=== PATIENT | female | born 1960 | race Caucasian/White ===

== ENCOUNTER 2019-04-27 11:08 | Inpatient (IN) | payer MEDICARE, MEDICAID ==
[~2019-04-27] VITALS: Ht 157.5 cm; Wt 93.9 kg
[~2019-04-27 11:08] MED LIST: ALPR0.5T PO; ATORVASTATIN CA80 MG PO; BUPR300T3 PO; CEPH-264 PO; DULO60CA6 PO; FLUT1DIS3 IH; HYDR-3135 PO; LEVALBUTER1.25 MG/0. NEB; PREG200C PO; SUVO20TA PO
--- NOTE | 2019-04-27 11:31 | EKG ---
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
[2019-04-27 11:40] LABS: BILIRUBIN,URINE NEGATIVE (NEG); CLARITY,URINE CLEAR; COLOR,URINE YELLOW; NITRITE,URINE NEGATIVE (NEG); PROTEIN,URINE NEGATIVE (NEG-TRACE)
[2019-04-27 11:47] LABS: BARBITURATES NEG (NEG); BENZODIAZEPINES POS (NEG); CANNABINOIDS NEG (NEG); COCAINE NEG (NEG); METHADONE NEG (NEG); OPIATES POS (NEG); PHENCYCLIDINE NEG (NEG)
[2019-04-27 11:48] LABS: AMPHETAMINE/METHAMPHETAMINE NEG (NEG)
[2019-04-27 11:49] LABS: BACTERIA,URINE 0 /HPF (0-FEW); RBC,URINE 0 /HPF (0-2); WBC,URINE 0 /HPF (0-4)
[2019-04-27] MEDS: IV NORMAL SALINE 1000ML BAG 1,000 ML IV SCH ×2 (11:59→14:37)
[2019-04-27 12:43] LABS: BASO # 0.1 x10^3/uL (0.0-0.2); BASO % 1 % (0-3); EOS # 0.1 x10^3/uL (0.0-0.7); EOS % 1 % (0-3); HEMATOCRIT 33.7 % (36.0-47.0); LYMPH # 0.7 x10^3/uL (1.0-4.8); LYMPH % 10 % (24-48); MEAN CORPUSCULAR HEMOGLOBIN 25 pg (25-35); MEAN CORPUSCULAR HGB CONC 33 g/dL (31-37); MEAN CORPUSCULAR VOLUME 77 fL (79-100); MONO # 0.6 x10^3/uL (0.0-1.1); MONO % 8 % (0-9); NEUT # 5.7 x10^3/uL (1.8-7.7); NEUT % 80 % (31-73); PLATELET COUNT 271 x10^3/uL (140-400); RED BLOOD COUNT 4.37 x10^6/uL (3.50-5.40); RED CELL DISTRIBUTION WIDTH 17.1 % (11.5-14.5); WHITE BLOOD COUNT 7.1 x10^3/uL (4.0-11.0)
--- NOTE | 2019-04-27 12:43 | RAD ---
PORTABLE CHEST 1V History: Altered mental status Comparison: December 08, 2017 Findings: Right suprahilar opacity, unchanged. No new consolidation. No pleural effusion. Sclerosis or erosive changes of the right humeral head. Impression: 1. Right suprahilar opacity, unchanged. No new consolidation. 2. Sclerosis and erosive changes of the right humeral head, may represent avascular necrosis. Electronically signed by: Bo Hwang DO (04/27/2019 12:40 PM) [facility]
[2019-04-27 12:52] LABS: PROTHROMBIN TIME PATIENT 12.6 SEC (11.7-14.0)
--- NOTE | 2019-04-27 12:57 | RAD ---
CT HEAD WO CONTRAST History: Altered mental status Comparison: December 09, 2017 Technique: Noncontrast CT imaging was performed of the head. Exposure: One or more of the following individualized dose reduction techniques were utilized for this examination: 1. Automated exposure control 2. Adjustment of the mA and/or kV according to patient size 3. Use of iterative reconstruction technique. Findings: There is some motion degradation. No acute intracranial hemorrhage is identified. There is no intra-axial mass effect, midline shift, or extra-axial fluid collection. Rico-white differentiation of the major vascular territories is maintained. There is mild supratentorial involutional change. There is patchy density of the bilateral mastoid air cells although present previously. Paranasal sinuses are overall aerated. There is atherosclerotic calcification of the bilateral carotid siphons. Impression: 1. No acute intracranial abnormality is identified. If there is suspicion for evolving or acute ischemia, follow-up CT or MRI could be beneficial. Electronically signed by: Dread Chan MD (04/27/2019 12:54 PM) [facility]
--- NOTE | 2019-04-27 13:05 | PHYS DOC ---
Past Medical History Past Medical History: Anemia, Anxiety, COPD, Depression, Diabetes-Type II, High Cholesterol, Hypertension, Other Additional Past Medical Histor: Diabetic Neuropathy Past Surgical History: Appendectomy, Cholecystectomy, Hysterectomy, Other Additional Past Surgical Histo: Right Kidney Removed Alcohol Use: None Drug Use: Cocaine Adult General Chief Complaint Chief Complaint: ALTERED MENTAL STATUS HPI HPI Patient is a 59 year old female with history of hypertension, diabetes high cholesterol, depression, anxiety who presents to the ED via EMS, EMS report patient's roommate found her sitting on the floor and appeared altered patient's roommate is not present right now in the ED patient is alert and oriented 2. Denies any chest pain. Denies any shortness of breath. She is a poor historian. Review of Systems Review of Systems Constitutional: Denies fever or chills [] Eyes: Denies change in visual acuity, redness, or eye pain [] HENT: Denies nasal congestion or sore throat [] Respiratory: Denies cough or shortness of breath [] Cardiovascular: No additional information not addressed in HPI [] GI: Denies abdominal pain, nausea, vomiting, bloody stools or diarrhea [] : Denies dysuria or hematuria [] Musculoskeletal: Denies back pain or joint pain [] Integument: Denies rash or skin lesions [] Neurologic: Reports altered mental status. Denies headache, focal weakness or sensory changes [] All other systems were reviewed and found to be within normal limits, except as documented in this note. Current Medications Current Medications Current Medications Medications (Trade) Dose Ordered Sig/Angel Start Time Stop Time Status Last Admin Dose Admin Sodium Chloride 1,000 ml @ 1,500 mls/hr Q40M 04/27/19 11:21 04/27/19 12:20 DC 04/27/19 14:37 1,500 MLS/HR Allergies Allergies Allergies Coded Allergies Type Severity Reaction Last Updated Verified sulfamethoxazole Allergy Intermediate Hives 12/25/17 Yes trimethoprim Allergy Intermediate Hives 12/25/17 Yes Physical Exam Physical Exam Constitutional: Well developed, well nourished, no acute distress, non-toxic appearance. [] HENT: Normocephalic, atraumatic, bilateral external ears normal, oropharynx moist, no oral exudates, nose normal. [] Eyes: PERRLA, EOMI, conjunctiva normal, no discharge. [] Neck: Normal range of motion, no tenderness, supple, no stridor. [] Cardiovascular:Heart rate regular rhythm, no murmur [] Lungs & Thorax: Coarse lung sounds. Abdomen: Bowel sounds normal, soft, no tenderness, no masses, no pulsatile masses. [] Skin: Warm, dry, no erythema, no rash. [] Back: No tenderness, no CVA tenderness. [] Extremities: No tenderness, no cyanosis, no clubbing, ROM intact, no edema. Missing fourth and fifth toes on the right foot. Scabbing noted distal end of the left fourth, third +2 bilateral pedal pulses. Toes. Neurologic: Alert and oriented X 2, normal motor function, normal sensory function, no focal deficits noted. [] Psychologic: Affect normal, judgement normal, mood normal. [] Current Patient Data Vital Signs Vital Signs Date Time Temp Pulse Resp B/P (MAP) Pulse Ox O2 Delivery O2 Flow Rate FiO2 04/27/19 13:11 96 94 04/27/19 11:08 98.7 21 90/70 (77) Room Air 98.7 Lab Values Laboratory Tests Test 04/27/19 11:25 04/27/19 12:15 Urine Collection Type U cath Urine Color Yellow Urine Clarity Clear Urine pH 5.0 Urine Specific [place] 1.020 Urine Protein Negative mg/dL (NEG-TRACE) Urine Glucose (UA) Negative mg/dL (NEG) Urine Ketones (Stick) Trace mg/dL (NEG) Urine Blood Negative (NEG) Urine Nitrite Negative (NEG) Urine Bilirubin Negative (NEG) Urine Urobilinogen Dipstick 1.0 mg/dL (0.2 mg/dL) Urine Leukocyte Esterase Negative (NEG) Urine RBC 0 /HPF (0-2) Urine WBC 0 /HPF (0-4) Urine Squamous Epithelial Cells None /LPF Urine Bacteria 0 /HPF (0-FEW) Urine Mucus Slight /LPF Urine Opiates Screen Pos (NEG) Urine Methadone Screen Neg (NEG) Urine Barbiturates Neg (NEG) Urine Phencyclidine Screen Neg (NEG) Urine Amphetamine/Methamphetamine Neg (NEG) Urine Benzodiazepines Screen Pos (NEG) Urine Cocaine Screen Neg (NEG) Urine Cannabinoids Screen Neg (NEG) Urine Ethyl Alcohol Neg (NEG) White Blood Count 7.1 x10^3/uL (4.0-11.0) Red Blood Count 4.37 x10^6/uL (3.50-5.40) Hemoglobin 11.0 g/dL (12.0-15.5) L Hematocrit 33.7 % (36.0-47.0) L Mean Corpuscular Volume 77 fL (79-100) L Mean Corpuscular Hemoglobin 25 pg (25-35) Mean Corpuscular Hemoglobin Concent 33 g/dL (31-37) Red Cell Distribution Width 17.1 % (11.5-14.5) H Platelet Count 271 x10^3/uL (140-400) Neutrophils (%) (Auto) 80 % (31-73) H Lymphocytes (%) (Auto) 10 % (24-48) L Monocytes (%) (Auto) 8 % (0-9) Eosinophils (%) (Auto) 1 % (0-3) Basophils (%) (Auto) 1 % (0-3) Neutrophils # (Auto) 5.7 x10^3/uL (1.8-7.7) Lymphocytes # (Auto) 0.7 x10^3/uL (1.0-4.8) L Monocytes # (Auto) 0.6 x10^3/uL (0.0-1.1) Eosinophils # (Auto) 0.1 x10^3/uL (0.0-0.7) Basophils # (Auto) 0.1 x10^3/uL (0.0-0.2) Prothrombin Time 12.6 SEC (11.7-14.0) Prothrombin Time INR 1.0 (0.8-1.1) Activated Partial Thromboplast Time 30 SEC (24-38) Sodium Level 140 mmol/L (136-145) Potassium Level 4.9 mmol/L (3.5-5.1) Chloride Level 103 mmol/L (98-107) Carbon Dioxide Level 27 mmol/L (21-32) Anion Gap 10 (6-14) Blood Urea Nitrogen 50 mg/dL (7-20) H Creatinine 1.5 mg/dL (0.6-1.0) H Estimated GFR (Cockcroft-Gault) 35.4 BUN/Creatinine Ratio 33 (6-20) H Glucose Level 103 mg/dL (70-99) H Lactic Acid Level 0.7 mmol/L (0.4-2.0) Calcium Level 9.1 mg/dL (8.5-10.1) Magnesium Level 2.0 mg/dL (1.8-2.4) Total Bilirubin 0.4 mg/dL (0.2-1.0) Aspartate Amino Transferase (AST) 17 U/L (15-37) Alanine Aminotransferase (ALT) 17 U/L (14-59) Alkaline Phosphatase 86 U/L (46-116) Ammonia < 10 mcmol/L (11-34) L Creatine Kinase 197 U/L (26-192) H Creatine Kinase MB (Mass) 3.5 ng/mL (0.0-3.6) Creatine Kinase MB Relative Index 1.8 % (0-4) Troponin I Quantitative < 0.017 ng/mL (0.000-0.055) AN-Tbf-M-Type Natriuretic Peptide 182 pg/mL (0-124) H Total Protein 7.1 g/dL (6.4-8.2) Albumin 3.7 g/dL (3.4-5.0) Albumin/Globulin Ratio 1.1 (1.0-1.7) Amylase Level 23 U/L (25-115) L Lipase 92 U/L (73-393) Procalcitonin < 0.10 ng/mL (0.00-0.10) Thyroid Stimulating Hormone (TSH) 1.597 uIU/mL (0.358-3.74) Salicylates Level < 2.8 mg/dL (2.8-20.0) L Salicylate Last Dose Date Unknown Salicylate Last Dose Time Unknown Acetaminophen Level < 2 mcg/ml (10-30) L Acetaminophen Last Dose Date Unknown Acetaminophen Last Dose Time Unknown Ethyl Alcohol Level < 10 mg/dL (0-10) Laboratory Tests 04/27/19 12:15 Laboratory Tests 04/27/19 12:15 EKG EKG [] Radiology/Procedures Radiology/Procedures []PROCEDURE: PORTABLE CHEST 1V PORTABLE CHEST 1V History: Altered mental status Comparison: December 08, 2017 Findings: Right suprahilar opacity, unchanged. No new consolidation. No pleural effusion. Sclerosis or erosive changes of the right humeral head. Impression: 1. Right suprahilar opacity, unchanged. No new consolidation. 2. Sclerosis and erosive changes of the right humeral head, may represent avascular necrosis. Electronically signed by: Bo Hwang DO (04/27/2019 12:40 PM) [facility] DICTATED and SIGNED BY: BO HWANG DO DATE: 04/27/19 1240 PROCEDURE: CT HEAD WO CONTRAST CT HEAD WO CONTRAST History: Altered mental status Comparison: December 09, 2017 Technique: Noncontrast CT imaging was performed of the head. Exposure: One or more of the following individualized dose reduction techniques were utilized for this examination: 1. Automated exposure control 2. Adjustment of the mA and/or kV according to patient size 3. Use of iterative reconstruction technique. Findings: There is some motion degradation. No acute intracranial hemorrhage is identified. There is no intra-axial mass effect, midline shift, or extra-axial fluid collection. Rico-white differentiation of the major vascular territories is maintained. There is mild supratentorial involutional change. There is patchy density of the bilateral mastoid air cells although present previously. Paranasal sinuses are overall aerated. There is atherosclerotic calcification of the bilateral carotid siphons. Impression: 1. No acute intracranial abnormality is identified. If there is suspicion for evolving or acute ischemia, follow-up CT or MRI could be beneficial. Electronically signed by: Robert Gibson MD (04/27/2019 12:54 PM) [facility] DICTATED and SIGNED BY: ROBERT GIBSON MD DATE: 04/27/19 1254 Course & Med Decision Making Course & Med Decision Making Pertinent Labs and Imaging studies reviewed. (See chart for details) This is a 59-year-old female patient presenting to the ED today via EMS with complaints of altered mental status. Patient is a poor historian. She was apparently found sitting on the floor by the roommate and did not act normal. Patient appears altered in the ED though we do not know her baseline CT of the head is negative, chest x-ray is negative for any acute findings. Urine drug screen noted for benzodiazepines and opiates. CBC with no acute findings, CMP with creatinine of 1.5, BUN of 50-this is around her baseline UA is negative. Lactic is normal.She was given IV fluids in the ED. Spoke with Dr. Duarte who accepted patient for admission Neurology routine consult placed. Dragon Disclaimer Dragon Disclaimer This electronic medical record was generated, in whole or in part, using a voice recognition dictation system. Departure Departure Impression: Primary Impression: AMS (altered mental status) Additional Impression: CKD (chronic kidney disease) Disposition: 09 ADMITTED INPATIENT Condition: STABLE Referrals: UNKNOWN PCP NAME (PCP) NIHSS Stroke Scale NIH Stroke Scale: NIH Stroke Scale Response (Comments) Value Level of Consciousness: 0 Alert/Responsive 0 LOC Questions: 1 Answers one correctly 1 LOC Commands: 1 Performs one task 1 Best Gaze: 0 Normal 0 Visual: 0 No visual loss 0 Facial Palsy: 0 Normal, symmetrical 0 Motor - Left Arm 0 No drift 0 Motor - Right Arm 0 No drift 0 Motor - Left Leg 0 No drift 0 Motor: Right Leg 0 No drift 0 Limb Ataxia: 0 Absent 0 Sensory: 0 No loss 0 Best Language: 0 Normal 0 Dysathria: 1 Mild to moderate 1 Extinction and Inattention: 0 Normal 0 Total 3 Problem Qualifiers Primary Impression: AMS (altered mental status) Altered mental status type: unspecified Qualified Codes: R41.82 - Altered mental status, unspecified Additional Impression: CKD (chronic kidney disease) Chronic kidney disease stage: unspecified stage Qualified Codes: N18.9 - Chronic kidney disease, unspecified RAGHAV WILKINSON APRN Apr 27, 2019 13:05
[2019-04-27 13:09] LABS: CALCIUM 9.1 mg/dL (8.5-10.1); CREATININE 1.5 mg/dL (0.6-1.0); GFR 35.4; POTASSIUM 4.9 mmol/L (3.5-5.1)
[2019-04-27 13:10] LABS: ALBUMIN 3.7 g/dL (3.4-5.0); ALBUMIN/GLOBULIN RATIO 1.1 (1.0-1.7); TOTAL BILIRUBIN 0.4 mg/dL (0.2-1.0); TOTAL PROTEIN 7.1 g/dL (6.4-8.2)
[2019-04-27 13:18] LABS: ACETAMIN < 2 mcg/ml (10-30); ETHANOL < 10 mg/dL (0-10); SALIC < 2.8 mg/dL (2.8-20.0)
[2019-04-27] MEDS ORDERED: ONDANSETRON PF 4 MG/2 ML VIAL. IV PRN (14:30)
[2019-04-27] MEDS ORDERED: ACETAMINOPHEN 325 MG TABLET. PO PRN (14:30)
[2019-04-27] MEDS: IV NORMAL SALINE 1000ML BAG 1,000 ML IV ONE ×2 (14:37→21:33)
[2019-04-27 16:40] VITALS: BP 157/87
--- NOTE | 2019-04-27 17:44 | PDOC2 ---
CONSULT Date of Consult Date of Consult DATE: 04/27/19 TIME: 17:43 Past Medical History Cardiovascular: HTN Pulmonary: COPD CENTRAL NERVOUS SYSTEM: Periperal neuropathy Musculoskeletal: low back pain, Osteoarthritis, Weakness Renal/: Other Endocrine: Diabetes Past Surgical History Past Surgical History: Hysterectomy, Other Family History Family History: Hypertension Social History ALCOHOL: none Drugs: None Current Problem List Problem List Problems Medical Problems: (1) AMS (altered mental status) Status: Acute (2) CKD (chronic kidney disease) Status: Acute Current Medications Current Medications Current Medications Sodium Chloride 1,000 ml @ 1,500 mls/hr Q40M IV Last administered on 04/27/19at 14:37; Start 04/27/19 at 11:21; Stop 04/27/19 at 12:20; Status DC Ondansetron HCl (Zofran) 4 mg PRN Q8HRS PRN IV NAUSEA/VOMITING; Start 04/27/19 at 14:30; Stop 04/28/19 at 14:29 Acetaminophen (Tylenol) 650 mg PRN Q4HRS PRN PO FEVER; Start 04/27/19 at 14:30; Stop 04/28/19 at 14:29 Sodium Chloride 1,000 ml @ 75 mls/hr 1X ONCE IV ; Start 04/27/19 at 14:30; Stop 04/28/19 at 03:49 Levofloxacin/ Dextrose 100 ml @ 100 mls/hr Q24H IV ; Start 04/27/19 at 18:00 Active Scripts Active Keflex (Cephalexin) 500 Mg Capsule 1 Cap PO TID Levalbuterol Concentrate (Levalbuterol Hcl) 1.25 Mg/0.5 Ml Vial.neb 1.25 Mg NEB RTQID 30 Days [place] 10-325 Tablet (Acetaminophen/Hydrocodone Bitart) 1 Each Tablet 1 Tab PO PRN Q6HRS PRN 30 Days Reported Advair 250-50 Diskus (Fluticasone/Salmeterol) 1 Each Disk.w.dev 1 Puff IH BID Atorvastatin Calcium 80 Mg Tablet 80 Mg PO HS Lyrica (Pregabalin) 200 Mg Capsule 1 Cap PO TID Belsomra (Suvorexant) 20 Mg Tablet 20 Mg PO Xanax (Alprazolam) 0.5 Mg Tablet 1 Tab PO DAILY Cymbalta (Duloxetine Hcl) 60 Mg Capsule.dr 2 Cap PO DAILY Wellbutrin Xl (Bupropion Hcl) 300 Mg Tab.er.24h 1 Tab PO DAILY Allergies Allergies: Coded Allergies: sulfamethoxazole (Verified Allergy, Intermediate, Hives , 12/25/17) trimethoprim (Verified Allergy, Intermediate, Hives , 12/25/17) Vitals VITALS Vital Signs Date Time Temp Pulse Resp B/P (MAP) Pulse Ox O2 Delivery O2 Flow Rate FiO2 04/27/19 16:40 97.8 96 16 157/87 (110) 96 Room Air 97.8 Labs Labs Laboratory Tests Test 04/27/19 11:25 04/27/19 12:15 Urine Collection Type U cath Urine Color Yellow Urine Clarity Clear Urine pH 5.0 Urine Specific [place] 1.020 Urine Protein Negative mg/dL (NEG-TRACE) Urine Glucose (UA) Negative mg/dL (NEG) Urine Ketones (Stick) Trace mg/dL (NEG) Urine Blood Negative (NEG) Urine Nitrite Negative (NEG) Urine Bilirubin Negative (NEG) Urine Urobilinogen Dipstick 1.0 mg/dL (0.2 mg/dL) Urine Leukocyte Esterase Negative (NEG) Urine RBC 0 /HPF (0-2) Urine WBC 0 /HPF (0-4) Urine Squamous Epithelial Cells None /LPF Urine Bacteria 0 /HPF (0-FEW) Urine Mucus Slight /LPF Urine Opiates Screen Pos (NEG) Urine Methadone Screen Neg (NEG) Urine Barbiturates Neg (NEG) Urine Phencyclidine Screen Neg (NEG) Urine Amphetamine/Methamphetamine Neg (NEG) Urine Benzodiazepines Screen Pos (NEG) Urine Cocaine Screen Neg (NEG) Urine Cannabinoids Screen Neg (NEG) Urine Ethyl Alcohol Neg (NEG) White Blood Count 7.1 x10^3/uL (4.0-11.0) Red Blood Count 4.37 x10^6/uL (3.50-5.40) Hemoglobin 11.0 g/dL (12.0-15.5) Hematocrit 33.7 % (36.0-47.0) Mean Corpuscular Volume 77 fL (79-100) Mean Corpuscular Hemoglobin 25 pg (25-35) Mean Corpuscular Hemoglobin Concent 33 g/dL (31-37) Red Cell Distribution Width 17.1 % (11.5-14.5) Platelet Count 271 x10^3/uL (140-400) Neutrophils (%) (Auto) 80 % (31-73) Lymphocytes (%) (Auto) 10 % (24-48) Monocytes (%) (Auto) 8 % (0-9) Eosinophils (%) (Auto) 1 % (0-3) Basophils (%) (Auto) 1 % (0-3) Neutrophils # (Auto) 5.7 x10^3/uL (1.8-7.7) Lymphocytes # (Auto) 0.7 x10^3/uL (1.0-4.8) Monocytes # (Auto) 0.6 x10^3/uL (0.0-1.1) Eosinophils # (Auto) 0.1 x10^3/uL (0.0-0.7) Basophils # (Auto) 0.1 x10^3/uL (0.0-0.2) Prothrombin Time 12.6 SEC (11.7-14.0) Prothromb Time International Ratio 1.0 (0.8-1.1) Activated Partial Thromboplast Time 30 SEC (24-38) Sodium Level 140 mmol/L (136-145) Potassium Level 4.9 mmol/L (3.5-5.1) Chloride Level 103 mmol/L (98-107) Carbon Dioxide Level 27 mmol/L (21-32) Anion Gap 10 (6-14) Blood Urea Nitrogen 50 mg/dL (7-20) Creatinine 1.5 mg/dL (0.6-1.0) Estimated GFR (Cockcroft-Gault) 35.4 BUN/Creatinine Ratio 33 (6-20) Glucose Level 103 mg/dL (70-99) Lactic Acid Level 0.7 mmol/L (0.4-2.0) Calcium Level 9.1 mg/dL (8.5-10.1) Magnesium Level 2.0 mg/dL (1.8-2.4) Total Bilirubin 0.4 mg/dL (0.2-1.0) Aspartate Amino Transf (AST/SGOT) 17 U/L (15-37) Alanine Aminotransferase (ALT/SGPT) 17 U/L (14-59) Alkaline Phosphatase 86 U/L (46-116) Ammonia < 10 mcmol/L (11-34) Creatine Kinase 197 U/L (26-192) Creatine Kinase MB (Mass) 3.5 ng/mL (0.0-3.6) Creatine Kinase MB Relative Index 1.8 % (0-4) Troponin I Quantitative < 0.017 ng/mL (0.000-0.055) GN-Imf-D-Type Natriuretic Peptide 182 pg/mL (0-124) Total Protein 7.1 g/dL (6.4-8.2) Albumin 3.7 g/dL (3.4-5.0) Albumin/Globulin Ratio 1.1 (1.0-1.7) Amylase Level 23 U/L (25-115) Lipase 92 U/L (73-393) Procalcitonin < 0.10 ng/mL (0.00-0.10) Thyroid Stimulating Hormone (TSH) 1.597 uIU/mL (0.358-3.74) Salicylates Level < 2.8 mg/dL (2.8-20.0) Salicylate Last Dose Date Unknown Salicylate Last Dose Time Unknown Acetaminophen Level < 2 mcg/ml (10-30) Acetaminophen Last Dose Date Unknown Acetaminophen Last Dose Time Unknown Ethyl Alcohol Level < 10 mg/dL (0-10) Laboratory Tests Test 04/27/19 11:25 04/27/19 12:15 Urine Collection Type U cath Urine Color Yellow Urine Clarity Clear Urine pH 5.0 Urine Specific [place] 1.020 Urine Protein Negative mg/dL (NEG-TRACE) Urine Glucose (UA) Negative mg/dL (NEG) Urine Ketones (Stick) Trace mg/dL (NEG) Urine Blood Negative (NEG) Urine Nitrite Negative (NEG) Urine Bilirubin Negative (NEG) Urine Urobilinogen Dipstick 1.0 mg/dL (0.2 mg/dL) Urine Leukocyte Esterase Negative (NEG) Urine RBC 0 /HPF (0-2) Urine WBC 0 /HPF (0-4) Urine Squamous Epithelial Cells None /LPF Urine Bacteria 0 /HPF (0-FEW) Urine Mucus Slight /LPF Urine Opiates Screen Pos (NEG) Urine Methadone Screen Neg (NEG) Urine Barbiturates Neg (NEG) Urine Phencyclidine Screen Neg (NEG) Urine Amphetamine/Methamphetamine Neg (NEG) Urine Benzodiazepines Screen Pos (NEG) Urine Cocaine Screen Neg (NEG) Urine Cannabinoids Screen Neg (NEG) Urine Ethyl Alcohol Neg (NEG) White Blood Count 7.1 x10^3/uL (4.0-11.0) Red Blood Count 4.37 x10^6/uL (3.50-5.40) Hemoglobin 11.0 g/dL (12.0-15.5) Hematocrit 33.7 % (36.0-47.0) Mean Corpuscular Volume 77 fL (79-100) Mean Corpuscular Hemoglobin 25 pg (25-35) Mean Corpuscular Hemoglobin Concent 33 g/dL (31-37) Red Cell Distribution Width 17.1 % (11.5-14.5) Platelet Count 271 x10^3/uL (140-400) Neutrophils (%) (Auto) 80 % (31-73) Lymphocytes (%) (Auto) 10 % (24-48) Monocytes (%) (Auto) 8 % (0-9) Eosinophils (%) (Auto) 1 % (0-3) Basophils (%) (Auto) 1 % (0-3) Neutrophils # (Auto) 5.7 x10^3/uL (1.8-7.7) Lymphocytes # (Auto) 0.7 x10^3/uL (1.0-4.8) Monocytes # (Auto) 0.6 x10^3/uL (0.0-1.1) Eosinophils # (Auto) 0.1 x10^3/uL (0.0-0.7) Basophils # (Auto) 0.1 x10^3/uL (0.0-0.2) Prothrombin Time 12.6 SEC (11.7-14.0) Prothromb Time International Ratio 1.0 (0.8-1.1) Activated Partial Thromboplast Time 30 SEC (24-38) Sodium Level 140 mmol/L (136-145) Potassium Level 4.9 mmol/L (3.5-5.1) Chloride Level 103 mmol/L (98-107) Carbon Dioxide Level 27 mmol/L (21-32) Anion Gap 10 (6-14) Blood Urea Nitrogen 50 mg/dL (7-20) Creatinine 1.5 mg/dL (0.6-1.0) Estimated GFR (Cockcroft-Gault) 35.4 BUN/Creatinine Ratio 33 (6-20) Glucose Level 103 mg/dL (70-99) Lactic Acid Level 0.7 mmol/L (0.4-2.0) Calcium Level 9.1 mg/dL (8.5-10.1) Magnesium Level 2.0 mg/dL (1.8-2.4) Total Bilirubin 0.4 mg/dL (0.2-1.0) Aspartate Amino Transf (AST/SGOT) 17 U/L (15-37) Alanine Aminotransferase (ALT/SGPT) 17 U/L (14-59) Alkaline Phosphatase 86 U/L (46-116) Ammonia < 10 mcmol/L (11-34) Creatine Kinase 197 U/L (26-192) Creatine Kinase MB (Mass) 3.5 ng/mL (0.0-3.6) Creatine Kinase MB Relative Index 1.8 % (0-4) Troponin I Quantitative < 0.017 ng/mL (0.000-0.055) MJ-Pty-K-Type Natriuretic Peptide 182 pg/mL (0-124) Total Protein 7.1 g/dL (6.4-8.2) Albumin 3.7 g/dL (3.4-5.0) Albumin/Globulin Ratio 1.1 (1.0-1.7) Amylase Level 23 U/L (25-115) Lipase 92 U/L (73-393) Procalcitonin < 0.10 ng/mL (0.00-0.10) Thyroid Stimulating Hormone (TSH) 1.597 uIU/mL (0.358-3.74) Salicylates Level < 2.8 mg/dL (2.8-20.0) Salicylate Last Dose Date Unknown Salicylate Last Dose Time Unknown Acetaminophen Level < 2 mcg/ml (10-30) Acetaminophen Last Dose Date Unknown Acetaminophen Last Dose Time Unknown Ethyl Alcohol Level < 10 mg/dL (0-10) Images Images Chest x-ray reviewed 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 PHYSICIAN: RAGHAV WILKINSON APRN REASON: AMS PROCEDURE: PORTABLE CHEST 1V PORTABLE CHEST 1V History: Altered mental status Comparison: December 08, 2017 Findings: Right suprahilar opacity, unchanged. No new consolidation. No pleural effusion. Sclerosis or erosive changes of the right humeral head. Impression: 1. Right suprahilar opacity, unchanged. No new consolidation. 2. Sclerosis and erosive changes of the right humeral head, may represent avascular necrosis. Electronically signed by: Bo wHang DO (04/27/2019 12:40 PM) [facility] DICTATED and SIGNED BY: BO HWANG DO DATE: 04/27/19 1240 Assessment/Plan Assessment/Plan I recommend outpatient follow-up in orthopedic clinic with x-rays for further evaluation. TERRENCE GUTIERREZ MD Apr 27, 2019 17:44
--- NOTE | 2019-04-27 18:01 | HP ---
ADMIT DATE: CHIEF COMPLAINT: Mental status change. HISTORY OF PRESENT ILLNESS: The patient is a pleasant elderly female who presented to the ER with mental status change. She came in by ambulance. Her friend called the ambulance. While in the ER, we noticed that she has some leukocyte esterase in her urine. Her CT of the head was surprisingly negative. Chest x-ray showed right suprahilar opacity and sclerosis and erosive changes of the right humeral head. She also is anemic with hemoglobin of 11. I discussed the case with ER physician. We are going to admit the patient. I am going to give her some IV antibiotics and fluids and consult Pulmonary regarding the abnormal chest x-ray and Orthopedics regarding the abnormalities suspicious for avascular necrosis. PAST MEDICAL HISTORY: COPD, anxiety, anemia, depression, diabetes, hyperlipidemia, neuropathy, appendectomy, cholecystectomy, hysterectomy and right kidney resection. ALLERGIES: SULFA AND TRIMETHOPRIM. FAMILY HISTORY: Diabetes. SOCIAL HISTORY: She does not drink, smoke or take drugs. I think she quit smoking. Lives alone. MEDICATIONS: Reviewed, please refer to the MRAD. REVIEW OF SYSTEMS: Unable to obtain. The patient is too confused. PHYSICAL EXAMINATION: VITALS: Within normal limits and are stable. GENERAL: She is somewhat disheveled, but pleasant. HEENT: Head is normocephalic, atraumatic, pupils were equally round and reactive to light and accommodation. NECK: Supple, no JVD, no thyromegaly was noted. LUNGS: Diminished. HEART: RRR, S1, S2 present. Peripheral pulses intact, no obvious murmurs were noted. ABDOMEN: Soft and obese. EXTREMITIES: Trace edema. NEUROLOGIC: Normal speech, normal tone. A & O x3, moves all extremities, no obvious focal deficits. PSYCHIATRIC: Normal affect, normal mood. Stable. SKIN: Thin and frail. VASCULAR: Good capillary refill, neurovascular bundle appears to be intact. LABORATORY DATA: Troponin is 0. Sodium is 140, creatinine is 1.5 and BUN is 50. Urinalysis shows leukocyte esterase. Drug screen positive for opiates. INR is 1.0. ASSESSMENT AND PLAN: Mental status change with acute on chronic renal failure, azotemia. Abnormal chest x-ray showing right suprahilar opacity, sclerosis, erosive changes on the right humeral head suspicious for avascular necrosis and anemia. She has been admitted. We will consult Pulmonary and Orthopedics. Empiric IV antibiotics, IV fluids, home meds, PT/OT and DVT prophylaxis. Full code. ANN MARIE HERRON DO DR: MARCELLO/samanta JOB#: [id number] / [id number]
[2019-04-27 19:00] VITALS: BP 128/76
[2019-04-27 23:00] VITALS: BP 125/66
[2019-04-28 03:00] VITALS: BP 144/73
[2019-04-28 05:38] LABS: BASO % 1 % (0-3); EOS # 0.1 x10^3/uL (0.0-0.7); EOS % 1 % (0-3); HEMATOCRIT 32.9 % (36.0-47.0); HEMOGLOBIN 10.7 g/dL (12.0-15.5); LYMPH # 0.7 x10^3/uL (1.0-4.8); LYMPH % 12 % (24-48); MEAN CORPUSCULAR HEMOGLOBIN 25 pg (25-35); MEAN CORPUSCULAR HGB CONC 33 g/dL (31-37); MEAN CORPUSCULAR VOLUME 77 fL (79-100); MONO # 0.5 x10^3/uL (0.0-1.1); MONO % 9 % (0-9); NEUT # 4.2 x10^3/uL (1.8-7.7); NEUT % 77 % (31-73); PLATELET COUNT 256 x10^3/uL (140-400); RED BLOOD COUNT 4.28 x10^6/uL (3.50-5.40); RED CELL DISTRIBUTION WIDTH 17.1 % (11.5-14.5); WHITE BLOOD COUNT 5.5 x10^3/uL (4.0-11.0)
[2019-04-28 06:20] LABS: ALBUMIN 3.1 g/dL (3.4-5.0); ALBUMIN/GLOBULIN RATIO 0.9 (1.0-1.7); CALCIUM 8.9 mg/dL (8.5-10.1); CREATININE 1.2 mg/dL (0.6-1.0); GFR 45.8; POTASSIUM 3.9 mmol/L (3.5-5.1); TOTAL BILIRUBIN 0.5 mg/dL (0.2-1.0); TOTAL PROTEIN 6.4 g/dL (6.4-8.2)
[2019-04-28 07:00] VITALS: BP 124/82
[2019-04-28 07:22] LABS: % BASOS 1 % (0-3); % LYMPHS 8 % (24-48); % MONOS 10 % (0-10); % SEGS 81 % (35-66)
[2019-04-28 07:23] LABS: PLT ESTIMATE ADEQUATE (ADEQUATE)
--- NOTE | 2019-04-28 09:55 | PDOC2 ---
CONSULT Date of Consult Date of Consult DATE: 04/28/19 TIME: 09:47 Reason for Consult Reason for Consult: CRI Identification/Chief Complaint Chief Complaint No complaints" my room mate thought i was confused" History of Present Illness Reason for Visit: Patient is a 59 year old C female with history of hypertension, diabetes, depression, anxiety who presents to the ED via EMS, EMS report patient's roommate found her sitting on the floor and appeared altered .In the ED patient is alert and oriented 2. Denies any chest pain. Denies any shortness of breath. She is a poor historian. Currently deniesany complaints. Denies any urinary complaints, No symptoms of UTI Denies NSAID use Has Nephrectomy last year per pt- thinks it was Lt Kidney . Doesnt see a Rehabilitation Liaison, follows with PCP Past Medical History Cardiovascular: HTN Pulmonary: COPD CENTRAL NERVOUS SYSTEM: Periperal neuropathy Musculoskeletal: low back pain, Osteoarthritis, Weakness Renal/: Other Endocrine: Diabetes Past Surgical History Past Surgical History: Hysterectomy, Other Family History Family History Diabetes. Family History: Hypertension Social History Social History She does not drink, smoke or take drugs. I think she quit smoking. Lives alone. ALCOHOL: none Drugs: None Current Problem List Problem List Problems Medical Problems: (1) AMS (altered mental status) Status: Acute (2) CKD (chronic kidney disease) Status: Acute Current Medications Current Medications Current Medications Sodium Chloride 1,000 ml @ 1,500 mls/hr Q40M IV Last administered on 04/27/19at 14:37; Start 04/27/19 at 11:21; Stop 04/27/19 at 12:20; Status DC Ondansetron HCl (Zofran) 4 mg PRN Q8HRS PRN IV NAUSEA/VOMITING; Start 04/27/19 at 14:30; Stop 04/28/19 at 14:29 Acetaminophen (Tylenol) 650 mg PRN Q4HRS PRN PO FEVER; Start 04/27/19 at 14:30; Stop 04/28/19 at 14:29 Sodium Chloride 1,000 ml @ 75 mls/hr 1X ONCE IV Last administered on 04/27/19at 21:33; Start 04/27/19 at 14:30; Stop 04/28/19 at 03:49; Status DC Levofloxacin/ Dextrose 100 ml @ 100 mls/hr Q24H IV Last administered on 04/27/19at 18:20; Start 04/27/19 at 18:00 Active Scripts Active Levalbuterol Concentrate (Levalbuterol Hcl) 1.25 Mg/0.5 Ml Vial.neb 1.25 Mg NEB RTQID 30 Days [place] 10-325 Tablet (Acetaminophen/Hydrocodone Bitart) 1 Each Tablet 1 Tab PO PRN Q6HRS PRN 30 Days Reported Advair 250-50 Diskus (Fluticasone/Salmeterol) 1 Each Disk.w.dev 1 Puff IH BID Atorvastatin Calcium 80 Mg Tablet 80 Mg PO HS Lyrica (Pregabalin) 200 Mg Capsule 1 Cap PO TID Belsomra (Suvorexant) 20 Mg Tablet 20 Mg PO HS Xanax (Alprazolam) 0.5 Mg Tablet 1 Tab PO DAILY Cymbalta (Duloxetine Hcl) 60 Mg Capsule.dr 2 Cap PO DAILY Wellbutrin Xl (Bupropion Hcl) 300 Mg Tab.er.24h 1 Tab PO DAILY Allergies Allergies: Coded Allergies: sulfamethoxazole (Verified Allergy, Intermediate, Hives , 12/25/17) trimethoprim (Verified Allergy, Intermediate, Hives , 12/25/17) ROS Review of System Per HPI Physical Exam Physical Exam GENERAL: NAD HEENT: OM moist NECK: Supple, LUNGS: Diminished at bases, CTA HEART: RRR, S1, S2 present. ABDOMEN: Soft and obese. EXTREMITIES: Trace edema. NEUROLOGIC:Grossly Normal PSYCHIATRIC: Normal affect, normal mood. Stable. SKIN: No rash No holm , No CVA or SP tenderness Vital Signs Vital Signs Date Time Temp Pulse Resp B/P (MAP) Pulse Ox O2 Delivery O2 Flow Rate FiO2 04/28/19 07:00 97.8 88 18 124/82 (96) 95 Room Air 97.8 Assessment & Plan CKD stage 3 - - Stable renal function, baseline at [facility] in 2018 has been 1.7, UA unremarkable E-Lytes and acid base stable Supportive care, avoid nephrotoxins, Monitor Altered MS- per primary Hx of Nephrectomy - per Pt 2018 No imaging in [facility] records Diabetes per primary Anemia- CARLY per protocol for Hgb <10 Labs Labs Laboratory Tests Test 04/27/19 11:25 04/27/19 12:15 04/28/19 05:04 Urine Collection Type U cath Urine Color Yellow Urine Clarity Clear Urine pH 5.0 Urine Specific [place] 1.020 Urine Protein Negative mg/dL (NEG-TRACE) Urine Glucose (UA) Negative mg/dL (NEG) Urine Ketones (Stick) Trace mg/dL (NEG) Urine Blood Negative (NEG) Urine Nitrite Negative (NEG) Urine Bilirubin Negative (NEG) Urine Urobilinogen Dipstick 1.0 mg/dL (0.2 mg/dL) Urine Leukocyte Esterase Negative (NEG) Urine RBC 0 /HPF (0-2) Urine WBC 0 /HPF (0-4) Urine Squamous Epithelial Cells None /LPF Urine Bacteria 0 /HPF (0-FEW) Urine Mucus Slight /LPF Urine Opiates Screen Pos (NEG) Urine Methadone Screen Neg (NEG) Urine Barbiturates Neg (NEG) Urine Phencyclidine Screen Neg (NEG) Urine Amphetamine/Methamphetamine Neg (NEG) Urine Benzodiazepines Screen Pos (NEG) Urine Cocaine Screen Neg (NEG) Urine Cannabinoids Screen Neg (NEG) Urine Ethyl Alcohol Neg (NEG) White Blood Count 7.1 x10^3/uL (4.0-11.0) 5.5 x10^3/uL (4.0-11.0) Red Blood Count 4.37 x10^6/uL (3.50-5.40) 4.28 x10^6/uL (3.50-5.40) Hemoglobin 11.0 g/dL (12.0-15.5) 10.7 g/dL (12.0-15.5) Hematocrit 33.7 % (36.0-47.0) 32.9 % (36.0-47.0) Mean Corpuscular Volume 77 fL (79-100) 77 fL (79-100) Mean Corpuscular Hemoglobin 25 pg (25-35) 25 pg (25-35) Mean Corpuscular Hemoglobin Concent 33 g/dL (31-37) 33 g/dL (31-37) Red Cell Distribution Width 17.1 % (11.5-14.5) 17.1 % (11.5-14.5) Platelet Count 271 x10^3/uL (140-400) 256 x10^3/uL (140-400) Neutrophils (%) (Auto) 80 % (31-73) 77 % (31-73) Lymphocytes (%) (Auto) 10 % (24-48) 12 % (24-48) Monocytes (%) (Auto) 8 % (0-9) 9 % (0-9) Eosinophils (%) (Auto) 1 % (0-3) 1 % (0-3) Basophils (%) (Auto) 1 % (0-3) 1 % (0-3) Neutrophils # (Auto) 5.7 x10^3/uL (1.8-7.7) 4.2 x10^3/uL (1.8-7.7) Lymphocytes # (Auto) 0.7 x10^3/uL (1.0-4.8) 0.7 x10^3/uL (1.0-4.8) Monocytes # (Auto) 0.6 x10^3/uL (0.0-1.1) 0.5 x10^3/uL (0.0-1.1) Eosinophils # (Auto) 0.1 x10^3/uL (0.0-0.7) 0.1 x10^3/uL (0.0-0.7) Basophils # (Auto) 0.1 x10^3/uL (0.0-0.2) 0.0 x10^3/uL (0.0-0.2) Prothrombin Time 12.6 SEC (11.7-14.0) Prothromb Time International Ratio 1.0 (0.8-1.1) Activated Partial Thromboplast Time 30 SEC (24-38) Sodium Level 140 mmol/L (136-145) 144 mmol/L (136-145) Potassium Level 4.9 mmol/L (3.5-5.1) 3.9 mmol/L (3.5-5.1) Chloride Level 103 mmol/L (98-107) 108 mmol/L (98-107) Carbon Dioxide Level 27 mmol/L (21-32) 25 mmol/L (21-32) Anion Gap 10 (6-14) 11 (6-14) Blood Urea Nitrogen 50 mg/dL (7-20) 28 mg/dL (7-20) Creatinine 1.5 mg/dL (0.6-1.0) 1.2 mg/dL (0.6-1.0) Estimated GFR (Cockcroft-Gault) 35.4 45.8 BUN/Creatinine Ratio 33 (6-20) 23 (6-20) Glucose Level 103 mg/dL (70-99) 77 mg/dL (70-99) Lactic Acid Level 0.7 mmol/L (0.4-2.0) Calcium Level 9.1 mg/dL (8.5-10.1) 8.9 mg/dL (8.5-10.1) Magnesium Level 2.0 mg/dL (1.8-2.4) Total Bilirubin 0.4 mg/dL (0.2-1.0) 0.5 mg/dL (0.2-1.0) Aspartate Amino Transf (AST/SGOT) 17 U/L (15-37) 13 U/L (15-37) Alanine Aminotransferase (ALT/SGPT) 17 U/L (14-59) 16 U/L (14-59) Alkaline Phosphatase 86 U/L (46-116) 69 U/L (46-116) Ammonia < 10 mcmol/L (11-34) Creatine Kinase 197 U/L (26-192) Creatine Kinase MB (Mass) 3.5 ng/mL (0.0-3.6) Creatine Kinase MB Relative Index 1.8 % (0-4) Troponin I Quantitative < 0.017 ng/mL (0.000-0.055) HV-Lcl-I-Type Natriuretic Peptide 182 pg/mL (0-124) Total Protein 7.1 g/dL (6.4-8.2) 6.4 g/dL (6.4-8.2) Albumin 3.7 g/dL (3.4-5.0) 3.1 g/dL (3.4-5.0) Albumin/Globulin Ratio 1.1 (1.0-1.7) 0.9 (1.0-1.7) Amylase Level 23 U/L (25-115) Lipase 92 U/L (73-393) Procalcitonin < 0.10 ng/mL (0.00-0.10) Thyroid Stimulating Hormone (TSH) 1.597 uIU/mL (0.358-3.74) Salicylates Level < 2.8 mg/dL (2.8-20.0) Salicylate Last Dose Date Unknown Salicylate Last Dose Time Unknown Acetaminophen Level < 2 mcg/ml (10-30) Acetaminophen Last Dose Date Unknown Acetaminophen Last Dose Time Unknown Ethyl Alcohol Level < 10 mg/dL (0-10) Segmented Neutrophils % 81 % (35-66) Lymphocytes % 8 % (24-48) Monocytes % 10 % (0-10) Basophils % 1 % (0-3) Platelet Estimate Adequate (ADEQUATE) Laboratory Tests Test 04/27/19 11:25 04/27/19 12:15 04/28/19 05:04 Urine Collection Type U cath Urine Color Yellow Urine Clarity Clear Urine pH 5.0 Urine Specific [place] 1.020 Urine Protein Negative mg/dL (NEG-TRACE) Urine Glucose (UA) Negative mg/dL (NEG) Urine Ketones (Stick) Trace mg/dL (NEG) Urine Blood Negative (NEG) Urine Nitrite Negative (NEG) Urine Bilirubin Negative (NEG) Urine Urobilinogen Dipstick 1.0 mg/dL (0.2 mg/dL) Urine Leukocyte Esterase Negative (NEG) Urine RBC 0 /HPF (0-2) Urine WBC 0 /HPF (0-4) Urine Squamous Epithelial Cells None /LPF Urine Bacteria 0 /HPF (0-FEW) Urine Mucus Slight /LPF Urine Opiates Screen Pos (NEG) Urine Methadone Screen Neg (NEG) Urine Barbiturates Neg (NEG) Urine Phencyclidine Screen Neg (NEG) Urine Amphetamine/Methamphetamine Neg (NEG) Urine Benzodiazepines Screen Pos (NEG) Urine Cocaine Screen Neg (NEG) Urine Cannabinoids Screen Neg (NEG) Urine Ethyl Alcohol Neg (NEG) White Blood Count 7.1 x10^3/uL (4.0-11.0) 5.5 x10^3/uL (4.0-11.0) Red Blood Count 4.37 x10^6/uL (3.50-5.40) 4.28 x10^6/uL (3.50-5.40) Hemoglobin 11.0 g/dL (12.0-15.5) 10.7 g/dL (12.0-15.5) Hematocrit 33.7 % (36.0-47.0) 32.9 % (36.0-47.0) Mean Corpuscular Volume 77 fL (79-100) 77 fL (79-100) Mean Corpuscular Hemoglobin 25 pg (25-35) 25 pg (25-35) Mean Corpuscular Hemoglobin Concent 33 g/dL (31-37) 33 g/dL (31-37) Red Cell Distribution Width 17.1 % (11.5-14.5) 17.1 % (11.5-14.5) Platelet Count 271 x10^3/uL (140-400) 256 x10^3/uL (140-400) Neutrophils (%) (Auto) 80 % (31-73) 77 % (31-73) Lymphocytes (%) (Auto) 10 % (24-48) 12 % (24-48) Monocytes (%) (Auto) 8 % (0-9) 9 % (0-9) Eosinophils (%) (Auto) 1 % (0-3) 1 % (0-3) Basophils (%) (Auto) 1 % (0-3) 1 % (0-3) Neutrophils # (Auto) 5.7 x10^3/uL (1.8-7.7) 4.2 x10^3/uL (1.8-7.7) Lymphocytes # (Auto) 0.7 x10^3/uL (1.0-4.8) 0.7 x10^3/uL (1.0-4.8) Monocytes # (Auto) 0.6 x10^3/uL (0.0-1.1) 0.5 x10^3/uL (0.0-1.1) Eosinophils # (Auto) 0.1 x10^3/uL (0.0-0.7) 0.1 x10^3/uL (0.0-0.7) Basophils # (Auto) 0.1 x10^3/uL (0.0-0.2) 0.0 x10^3/uL (0.0-0.2) Prothrombin Time 12.6 SEC (11.7-14.0) Prothromb Time International Ratio 1.0 (0.8-1.1) Activated Partial Thromboplast Time 30 SEC (24-38) Sodium Level 140 mmol/L (136-145) 144 mmol/L (136-145) Potassium Level 4.9 mmol/L (3.5-5.1) 3.9 mmol/L (3.5-5.1) Chloride Level 103 mmol/L (98-107) 108 mmol/L (98-107) Carbon Dioxide Level 27 mmol/L (21-32) 25 mmol/L (21-32) Anion Gap 10 (6-14) 11 (6-14) Blood Urea Nitrogen 50 mg/dL (7-20) 28 mg/dL (7-20) Creatinine 1.5 mg/dL (0.6-1.0) 1.2 mg/dL (0.6-1.0) Estimated GFR (Cockcroft-Gault) 35.4 45.8 BUN/Creatinine Ratio 33 (6-20) 23 (6-20) Glucose Level 103 mg/dL (70-99) 77 mg/dL (70-99) Lactic Acid Level 0.7 mmol/L (0.4-2.0) Calcium Level 9.1 mg/dL (8.5-10.1) 8.9 mg/dL (8.5-10.1) Magnesium Level 2.0 mg/dL (1.8-2.4) Total Bilirubin 0.4 mg/dL (0.2-1.0) 0.5 mg/dL (0.2-1.0) Aspartate Amino Transf (AST/SGOT) 17 U/L (15-37) 13 U/L (15-37) Alanine Aminotransferase (ALT/SGPT) 17 U/L (14-59) 16 U/L (14-59) Alkaline Phosphatase 86 U/L (46-116) 69 U/L (46-116) Ammonia < 10 mcmol/L (11-34) Creatine Kinase 197 U/L (26-192) Creatine Kinase MB (Mass) 3.5 ng/mL (0.0-3.6) Creatine Kinase MB Relative Index 1.8 % (0-4) Troponin I Quantitative < 0.017 ng/mL (0.000-0.055) SP-Ttx-X-Type Natriuretic Peptide 182 pg/mL (0-124) Total Protein 7.1 g/dL (6.4-8.2) 6.4 g/dL (6.4-8.2) Albumin 3.7 g/dL (3.4-5.0) 3.1 g/dL (3.4-5.0) Albumin/Globulin Ratio 1.1 (1.0-1.7) 0.9 (1.0-1.7) Amylase Level 23 U/L (25-115) Lipase 92 U/L (73-393) Procalcitonin < 0.10 ng/mL (0.00-0.10) Thyroid Stimulating Hormone (TSH) 1.597 uIU/mL (0.358-3.74) Salicylates Level < 2.8 mg/dL (2.8-20.0) Salicylate Last Dose Date Unknown Salicylate Last Dose Time Unknown Acetaminophen Level < 2 mcg/ml (10-30) Acetaminophen Last Dose Date Unknown Acetaminophen Last Dose Time Unknown Ethyl Alcohol Level < 10 mg/dL (0-10) Segmented Neutrophils % 81 % (35-66) Lymphocytes % 8 % (24-48) Monocytes % 10 % (0-10) Basophils % 1 % (0-3) Platelet Estimate Adequate (ADEQUATE) Review All relevant outside records, renal labs, imaging studies, telemetry/EKG's were reviewed. Images Images CxR-- 1. Right suprahilar opacity, unchanged. No new consolidation. 2. Sclerosis and erosive changes of the right humeral head, may represent avascular necrosis. BARBARA FIERRO MD Apr 28, 2019 09:55
[2019-04-28 11:00] VITALS: BP 153/85
[2019-04-28] MEDS ORDERED: DEXTROSE 50% 25 GM / 50ML DISP.SYRIN. IV PRN (11:15)
--- NOTE | 2019-04-28 11:50 | PDOC2 ---
NEUROLOGY CONSULT Date of Admission Date of Admission DATE: 04/28/19 TIME: 11:44 Reason for Consult Reason for Consult: Altered mental status Referring Physician Referring Physician: Dr. Duarte Source Source: Chart review, Patient History of Present Illness History of Present Illness The patient is a 59-year-old right-handed female whose roommate called ambulance because the patient was acting strange last night. Patient feels fine now. She was found or have possible urinary tract infection. 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 She denies headache, diplopia, dysphagia, dysarthria, numbness, focal weakness, history of stroke, seizure, or head injury. She has a listed diagnosis of neuropathy. I saw her during her November 2017 hospital stay for weakness and tremor. MRI of the brain, thoracic, and ivy mbar spines was positive for some degenerative changes. Electroencephalogram was negative.. Past Medical History Cardiovascular: Hyperlipidemia Pulmonary: COPD CENTRAL NERVOUS SYSTEM: Periperal neuropathy Heme/Onc: Anemia NOS Psych: Anxiety, Depression Endocrine: Diabetes Past Surgical History Past Surgical History: Appendectomy, Cholecystectomy, Hysterectomy, Other (Right kidney resection) Family History Family History: DM Social History Social History Single, no alcohol or tobacco Current Medications Current Medications Current Medications Sodium Chloride 1,000 ml @ 1,500 mls/hr Q40M IV Last administered on 04/27/19at 14:37; Start 04/27/19 at 11:21; Stop 04/27/19 at 12:20; Status DC Ondansetron HCl (Zofran) 4 mg PRN Q8HRS PRN IV NAUSEA/VOMITING; Start 04/27/19 at 14:30; Stop 04/28/19 at 14:29 Acetaminophen (Tylenol) 650 mg PRN Q4HRS PRN PO FEVER; Start 04/27/19 at 14:30; Stop 04/28/19 at 14:29 Sodium Chloride 1,000 ml @ 75 mls/hr 1X ONCE IV Last administered on 04/27/19at 21:33; Start 04/27/19 at 14:30; Stop 04/28/19 at 03:49; Status DC Levofloxacin/ Dextrose 100 ml @ 100 mls/hr Q24H IV Last administered on 04/27/19at 18:20; Start 04/27/19 at 18:00 Sodium Chloride 1,000 ml @ 100 mls/hr Q10H IV ; Start 04/28/19 at 11:15 Insulin Human Lispro (HumaLOG) 0-7 UNITS TIDWMEALS SQ ; Start 04/28/19 at 12:00 Dextrose (Dextrose 50%-Water Syringe) 12.5 gm PRN Q15MIN PRN IV SEE COMMENTS; Start 04/28/19 at 11:15 Oxycodone/ Acetaminophen (Percocet 5/325) 1 tab PRN Q4HRS PRN PO PAIN; Start 04/28/19 at 11:30 Active Scripts Active Levalbuterol Concentrate (Levalbuterol Hcl) 1.25 Mg/0.5 Ml Vial.neb 1.25 Mg NEB RTQID 30 Days [place] 10-325 Tablet (Acetaminophen/Hydrocodone Bitart) 1 Each Tablet 1 Tab PO PRN Q6HRS PRN 30 Days Reported Advair 250-50 Diskus (Fluticasone/Salmeterol) 1 Each Disk.w.dev 1 Puff IH BID Atorvastatin Calcium 80 Mg Tablet 80 Mg PO HS Lyrica (Pregabalin) 200 Mg Capsule 1 Cap PO TID Belsomra (Suvorexant) 20 Mg Tablet 20 Mg PO HS Xanax (Alprazolam) 0.5 Mg Tablet 1 Tab PO DAILY Cymbalta (Duloxetine Hcl) 60 Mg Capsule.dr 2 Cap PO DAILY Wellbutrin Xl (Bupropion Hcl) 300 Mg Tab.er.24h 1 Tab PO DAILY Allergies Allergies: Coded Allergies: sulfamethoxazole (Verified Allergy, Intermediate, Hives , 12/25/17) trimethoprim (Verified Allergy, Intermediate, Hives , 12/25/17) ROS Review of System Negative for fever, chills, weight loss, shortness of breath, chest pain, indigestion, hematochezia, melena, and dysuria. Full 14-point review of systems is negative. Physical Exam Physical Examination General: Well-developed, well-nourished white female in no acute distress HEENT: Normocephalic andatraumatic. Temporal arteriespulsatile and nontender. Neck: Supple without bruit, no meningismus Musculoskeletal: Stability:see neurologic. Gait exam:see neurologic. Tone:see neurologic.Strength:see neurologic. Neurological: Mental Status:intact, orientation, memory, attention span/concentration, language, fund of knowledge normal. Cranial Nerves:Pupils equal and reactive to light, extraocular movements areintact, visual huynh are full to confrontation . Facial sensation is normal. There is no facial asymmetry. Vestibulo-ocular reflex is intact. Palate elevates and tongue protrudes in midline. All other cranial related problems are negative except as mentioned before.Reflexes:1+ and symmetric with flexor plantar responses. Motor:5/5 strength with normal tone and bulk. Coordination:Finger-nose finger and [id number]-uk-xbfn testing are normal. Rapid alternating movements and fine finger movements are intact. Gait:Normal, including tandem. Sensory: stocking loss Vitals VITALS Vital Signs Date Time Temp Pulse Resp B/P (MAP) Pulse Ox O2 Delivery O2 Flow Rate FiO2 04/28/19 07:00 97.8 88 18 124/82 (96) 95 Room Air 97.8 Labs Labs Laboratory Tests Test 04/27/19 11:25 04/27/19 12:15 04/28/19 05:04 Urine Collection Type U cath Urine Color Yellow Urine Clarity Clear Urine pH 5.0 Urine Specific [place] 1.020 Urine Protein Negative mg/dL (NEG-TRACE) Urine Glucose (UA) Negative mg/dL (NEG) Urine Ketones (Stick) Trace mg/dL (NEG) Urine Blood Negative (NEG) Urine Nitrite Negative (NEG) Urine Bilirubin Negative (NEG) Urine Urobilinogen Dipstick 1.0 mg/dL (0.2 mg/dL) Urine Leukocyte Esterase Negative (NEG) Urine RBC 0 /HPF (0-2) Urine WBC 0 /HPF (0-4) Urine Squamous Epithelial Cells None /LPF Urine Bacteria 0 /HPF (0-FEW) Urine Mucus Slight /LPF Urine Opiates Screen Pos (NEG) Urine Methadone Screen Neg (NEG) Urine Barbiturates Neg (NEG) Urine Phencyclidine Screen Neg (NEG) Urine Amphetamine/Methamphetamine Neg (NEG) Urine Benzodiazepines Screen Pos (NEG) Urine Cocaine Screen Neg (NEG) Urine Cannabinoids Screen Neg (NEG) Urine Ethyl Alcohol Neg (NEG) White Blood Count 7.1 x10^3/uL (4.0-11.0) 5.5 x10^3/uL (4.0-11.0) Red Blood Count 4.37 x10^6/uL (3.50-5.40) 4.28 x10^6/uL (3.50-5.40) Hemoglobin 11.0 g/dL (12.0-15.5) 10.7 g/dL (12.0-15.5) Hematocrit 33.7 % (36.0-47.0) 32.9 % (36.0-47.0) Mean Corpuscular Volume 77 fL (79-100) 77 fL (79-100) Mean Corpuscular Hemoglobin 25 pg (25-35) 25 pg (25-35) Mean Corpuscular Hemoglobin Concent 33 g/dL (31-37) 33 g/dL (31-37) Red Cell Distribution Width 17.1 % (11.5-14.5) 17.1 % (11.5-14.5) Platelet Count 271 x10^3/uL (140-400) 256 x10^3/uL (140-400) Neutrophils (%) (Auto) 80 % (31-73) 77 % (31-73) Lymphocytes (%) (Auto) 10 % (24-48) 12 % (24-48) Monocytes (%) (Auto) 8 % (0-9) 9 % (0-9) Eosinophils (%) (Auto) 1 % (0-3) 1 % (0-3) Basophils (%) (Auto) 1 % (0-3) 1 % (0-3) Neutrophils # (Auto) 5.7 x10^3/uL (1.8-7.7) 4.2 x10^3/uL (1.8-7.7) Lymphocytes # (Auto) 0.7 x10^3/uL (1.0-4.8) 0.7 x10^3/uL (1.0-4.8) Monocytes # (Auto) 0.6 x10^3/uL (0.0-1.1) 0.5 x10^3/uL (0.0-1.1) Eosinophils # (Auto) 0.1 x10^3/uL (0.0-0.7) 0.1 x10^3/uL (0.0-0.7) Basophils # (Auto) 0.1 x10^3/uL (0.0-0.2) 0.0 x10^3/uL (0.0-0.2) Prothrombin Time 12.6 SEC (11.7-14.0) Prothromb Time International Ratio 1.0 (0.8-1.1) Activated Partial Thromboplast Time 30 SEC (24-38) Sodium Level 140 mmol/L (136-145) 144 mmol/L (136-145) Potassium Level 4.9 mmol/L (3.5-5.1) 3.9 mmol/L (3.5-5.1) Chloride Level 103 mmol/L (98-107) 108 mmol/L (98-107) Carbon Dioxide Level 27 mmol/L (21-32) 25 mmol/L (21-32) Anion Gap 10 (6-14) 11 (6-14) Blood Urea Nitrogen 50 mg/dL (7-20) 28 mg/dL (7-20) Creatinine 1.5 mg/dL (0.6-1.0) 1.2 mg/dL (0.6-1.0) Estimated GFR (Cockcroft-Gault) 35.4 45.8 BUN/Creatinine Ratio 33 (6-20) 23 (6-20) Glucose Level 103 mg/dL (70-99) 77 mg/dL (70-99) Lactic Acid Level 0.7 mmol/L (0.4-2.0) Calcium Level 9.1 mg/dL (8.5-10.1) 8.9 mg/dL (8.5-10.1) Magnesium Level 2.0 mg/dL (1.8-2.4) Total Bilirubin 0.4 mg/dL (0.2-1.0) 0.5 mg/dL (0.2-1.0) Aspartate Amino Transf (AST/SGOT) 17 U/L (15-37) 13 U/L (15-37) Alanine Aminotransferase (ALT/SGPT) 17 U/L (14-59) 16 U/L (14-59) Alkaline Phosphatase 86 U/L (46-116) 69 U/L (46-116) Ammonia < 10 mcmol/L (11-34) Creatine Kinase 197 U/L (26-192) Creatine Kinase MB (Mass) 3.5 ng/mL (0.0-3.6) Creatine Kinase MB Relative Index 1.8 % (0-4) Troponin I Quantitative < 0.017 ng/mL (0.000-0.055) NZ-Xud-P-Type Natriuretic Peptide 182 pg/mL (0-124) Total Protein 7.1 g/dL (6.4-8.2) 6.4 g/dL (6.4-8.2) Albumin 3.7 g/dL (3.4-5.0) 3.1 g/dL (3.4-5.0) Albumin/Globulin Ratio 1.1 (1.0-1.7) 0.9 (1.0-1.7) Amylase Level 23 U/L (25-115) Lipase 92 U/L (73-393) Procalcitonin < 0.10 ng/mL (0.00-0.10) Thyroid Stimulating Hormone (TSH) 1.597 uIU/mL (0.358-3.74) Salicylates Level < 2.8 mg/dL (2.8-20.0) Salicylate Last Dose Date Unknown Salicylate Last Dose Time Unknown Acetaminophen Level < 2 mcg/ml (10-30) Acetaminophen Last Dose Date Unknown Acetaminophen Last Dose Time Unknown Ethyl Alcohol Level < 10 mg/dL (0-10) Segmented Neutrophils % 81 % (35-66) Lymphocytes % 8 % (24-48) Monocytes % 10 % (0-10) Basophils % 1 % (0-3) Platelet Estimate Adequate (ADEQUATE) Laboratory Tests Test 04/27/19 12:15 04/28/19 05:04 White Blood Count 7.1 x10^3/uL (4.0-11.0) 5.5 x10^3/uL (4.0-11.0) Red Blood Count 4.37 x10^6/uL (3.50-5.40) 4.28 x10^6/uL (3.50-5.40) Hemoglobin 11.0 g/dL (12.0-15.5) 10.7 g/dL (12.0-15.5) Hematocrit 33.7 % (36.0-47.0) 32.9 % (36.0-47.0) Mean Corpuscular Volume 77 fL (79-100) 77 fL (79-100) Mean Corpuscular Hemoglobin 25 pg (25-35) 25 pg (25-35) Mean Corpuscular Hemoglobin Concent 33 g/dL (31-37) 33 g/dL (31-37) Red Cell Distribution Width 17.1 % (11.5-14.5) 17.1 % (11.5-14.5) Platelet Count 271 x10^3/uL (140-400) 256 x10^3/uL (140-400) Neutrophils (%) (Auto) 80 % (31-73) 77 % (31-73) Lymphocytes (%) (Auto) 10 % (24-48) 12 % (24-48) Monocytes (%) (Auto) 8 % (0-9) 9 % (0-9) Eosinophils (%) (Auto) 1 % (0-3) 1 % (0-3) Basophils (%) (Auto) 1 % (0-3) 1 % (0-3) Neutrophils # (Auto) 5.7 x10^3/uL (1.8-7.7) 4.2 x10^3/uL (1.8-7.7) Lymphocytes # (Auto) 0.7 x10^3/uL (1.0-4.8) 0.7 x10^3/uL (1.0-4.8) Monocytes # (Auto) 0.6 x10^3/uL (0.0-1.1) 0.5 x10^3/uL (0.0-1.1) Eosinophils # (Auto) 0.1 x10^3/uL (0.0-0.7) 0.1 x10^3/uL (0.0-0.7) Basophils # (Auto) 0.1 x10^3/uL (0.0-0.2) 0.0 x10^3/uL (0.0-0.2) Prothrombin Time 12.6 SEC (11.7-14.0) Prothromb Time International Ratio 1.0 (0.8-1.1) Activated Partial Thromboplast Time 30 SEC (24-38) Sodium Level 140 mmol/L (136-145) 144 mmol/L (136-145) Potassium Level 4.9 mmol/L (3.5-5.1) 3.9 mmol/L (3.5-5.1) Chloride Level 103 mmol/L (98-107) 108 mmol/L (98-107) Carbon Dioxide Level 27 mmol/L (21-32) 25 mmol/L (21-32) Anion Gap 10 (6-14) 11 (6-14) Blood Urea Nitrogen 50 mg/dL (7-20) 28 mg/dL (7-20) Creatinine 1.5 mg/dL (0.6-1.0) 1.2 mg/dL (0.6-1.0) Estimated GFR (Cockcroft-Gault) 35.4 45.8 BUN/Creatinine Ratio 33 (6-20) 23 (6-20) Glucose Level 103 mg/dL (70-99) 77 mg/dL (70-99) Lactic Acid Level 0.7 mmol/L (0.4-2.0) Calcium Level 9.1 mg/dL (8.5-10.1) 8.9 mg/dL (8.5-10.1) Magnesium Level 2.0 mg/dL (1.8-2.4) Total Bilirubin 0.4 mg/dL (0.2-1.0) 0.5 mg/dL (0.2-1.0) Aspartate Amino Transf (AST/SGOT) 17 U/L (15-37) 13 U/L (15-37) Alanine Aminotransferase (ALT/SGPT) 17 U/L (14-59) 16 U/L (14-59) Alkaline Phosphatase 86 U/L (46-116) 69 U/L (46-116) Ammonia < 10 mcmol/L (11-34) Creatine Kinase 197 U/L (26-192) Creatine Kinase MB (Mass) 3.5 ng/mL (0.0-3.6) Creatine Kinase MB Relative Index 1.8 % (0-4) Troponin I Quantitative < 0.017 ng/mL (0.000-0.055) IY-Tlo-J-Type Natriuretic Peptide 182 pg/mL (0-124) Total Protein 7.1 g/dL (6.4-8.2) 6.4 g/dL (6.4-8.2) Albumin 3.7 g/dL (3.4-5.0) 3.1 g/dL (3.4-5.0) Albumin/Globulin Ratio 1.1 (1.0-1.7) 0.9 (1.0-1.7) Amylase Level 23 U/L (25-115) Lipase 92 U/L (73-393) Procalcitonin < 0.10 ng/mL (0.00-0.10) Thyroid Stimulating Hormone (TSH) 1.597 uIU/mL (0.358-3.74) Salicylates Level < 2.8 mg/dL (2.8-20.0) Salicylate Last Dose Date Unknown Salicylate Last Dose Time Unknown Acetaminophen Level < 2 mcg/ml (10-30) Acetaminophen Last Dose Date Unknown Acetaminophen Last Dose Time Unknown Ethyl Alcohol Level < 10 mg/dL (0-10) Segmented Neutrophils % 81 % (35-66) Lymphocytes % 8 % (24-48) Monocytes % 10 % (0-10) Basophils % 1 % (0-3) Platelet Estimate Adequate (ADEQUATE) Images Images CT HEAD WO CONTRAST History: Altered mental status Comparison: December 09, 2017 Technique: Noncontrast CT imaging was performed of the head. Exposure: One or more of the following individualized dose reduction techniques were utilized for this examination: 1. Automated exposure control 2. Adjustment of the mA and/or kV according to patient size 3. Use of iterative reconstruction technique. Findings: There is some motion degradation. No acute intracranial hemorrhage is identified. There is no intra-axial mass effect, midline shift, or extra-axial fluid collection. Rico-white differentiation of the major vascular territories is maintained. There is mild supratentorial involutional change. There is patchy density of the bilateral mastoid air cells although present previously. Paranasal sinuses are overall aerated. There is atherosclerotic calcification of the bilateral carotid siphons. Impression: 1. No acute intracranial abnormality is identified. If there is suspicion for evolving or acute ischemia, follow-up CT or MRI could be beneficial. Assessment/Plan Assessment/Plan Impression: Metabolic encephalopathy, resolved, she has some mild renal insufficiency, urinary tract infection, [place], and psychiatric disease. I find no evidence of stroke, seizure disorder, or central nervous system infection. Diabetic neuropathy. Recommendations: I ordered some additional laboratory studies. Okay for discharge any time. Follow-up with neurology as needed. Thank you for letting me help the patient's care. CARLITOS ESTRADA MD Apr 28, 2019 11:50
[2019-04-28] MEDS: INSULIN LISPRO 300 UNITS/3 ML VIAL. SQ SCH ×2 (12:00→17:00)
--- NOTE | 2019-04-28 12:49 | NUR ---
SW consulted pt found obtunded at home. Chart reviewed and discussed with Physician. Pt has PMHx of COPD, DM, anxiety, and Depression and is admitted for AMS. Pt's symptoms appears to have resolved at this time. Pt lives at in a trailer with her friend and friend's daughter. Pt uses a walker at home and her friends helps her with meal preparation and some ADL's. PT recommends home independent, OT recommends home with assistance. Ortho and Nephrology following. Pt might benefit from home health services for diseases/medication management. Pt had used [facility] in the past. Nurse navigator from [facility] will meet with pt today. SW will continue to follow.
[2019-04-28] MEDS: IV NORMAL SALINE 1000ML BAG 1,000 ML IV SCH (13:51)
[2019-04-28 15:00] VITALS: BP 139/81
--- NOTE | 2019-04-28 15:39 | PDOC ---
PROGRESS NOTES Chief Complaint Chief Complaint new dysphagia acute metabolic encephalopathy acute on chronic renal failure, azotemia. left second toe lesion obesity, BMI 38 diffuse acute on chronic pain DM2, with toe infection History of Present Illness History of Present Illness pain "all over" had not gotten her home med of lortab 10 dysphagia overnight, will speech eval abx ortho eval, hip problems, toe looks infected Vitals Vitals Vital Signs Date Time Temp Pulse Resp B/P (MAP) Pulse Ox O2 Delivery O2 Flow Rate FiO2 04/28/19 11:00 97.7 76 18 153/85 (107) 94 Room Air 97.7 Physical Exam Lungs: Clear Labs LABS Laboratory Tests Test 04/28/19 05:04 04/28/19 12:58 White Blood Count 5.5 x10^3/uL (4.0-11.0) Red Blood Count 4.28 x10^6/uL (3.50-5.40) Hemoglobin 10.7 g/dL (12.0-15.5) Hematocrit 32.9 % (36.0-47.0) Mean Corpuscular Volume 77 fL (79-100) Mean Corpuscular Hemoglobin 25 pg (25-35) Mean Corpuscular Hemoglobin Concent 33 g/dL (31-37) Red Cell Distribution Width 17.1 % (11.5-14.5) Platelet Count 256 x10^3/uL (140-400) Neutrophils (%) (Auto) 77 % (31-73) Lymphocytes (%) (Auto) 12 % (24-48) Monocytes (%) (Auto) 9 % (0-9) Eosinophils (%) (Auto) 1 % (0-3) Basophils (%) (Auto) 1 % (0-3) Neutrophils # (Auto) 4.2 x10^3/uL (1.8-7.7) Lymphocytes # (Auto) 0.7 x10^3/uL (1.0-4.8) Monocytes # (Auto) 0.5 x10^3/uL (0.0-1.1) Eosinophils # (Auto) 0.1 x10^3/uL (0.0-0.7) Basophils # (Auto) 0.0 x10^3/uL (0.0-0.2) Segmented Neutrophils % 81 % (35-66) Lymphocytes % 8 % (24-48) Monocytes % 10 % (0-10) Basophils % 1 % (0-3) Platelet Estimate Adequate (ADEQUATE) Sodium Level 144 mmol/L (136-145) Potassium Level 3.9 mmol/L (3.5-5.1) Chloride Level 108 mmol/L (98-107) Carbon Dioxide Level 25 mmol/L (21-32) Anion Gap 11 (6-14) Blood Urea Nitrogen 28 mg/dL (7-20) Creatinine 1.2 mg/dL (0.6-1.0) Estimated GFR (Cockcroft-Gault) 45.8 BUN/Creatinine Ratio 23 (6-20) Glucose Level 77 mg/dL (70-99) Calcium Level 8.9 mg/dL (8.5-10.1) Total Bilirubin 0.5 mg/dL (0.2-1.0) Aspartate Amino Transf (AST/SGOT) 13 U/L (15-37) Alanine Aminotransferase (ALT/SGPT) 16 U/L (14-59) Alkaline Phosphatase 69 U/L (46-116) Total Protein 6.4 g/dL (6.4-8.2) Albumin 3.1 g/dL (3.4-5.0) Albumin/Globulin Ratio 0.9 (1.0-1.7) Glucose (Fingerstick) 88 mg/dL (70-99) Assessment and Plan Assessmemt and Plan Problems Medical Problems: (1) AMS (altered mental status) Status: Acute (2) CKD (chronic kidney disease) Status: Acute Comment Review of Relevant I have reviewed the following items avery (where applicable) has been applied. Labs Laboratory Tests Test 04/27/19 11:25 04/27/19 12:15 04/28/19 05:04 04/28/19 12:58 Urine Collection Type U cath Urine Color Yellow Urine Clarity Clear Urine pH 5.0 Urine Specific [place] 1.020 Urine Protein Negative mg/dL (NEG-TRACE) Urine Glucose (UA) Negative mg/dL (NEG) Urine Ketones (Stick) Trace mg/dL (NEG) Urine Blood Negative (NEG) Urine Nitrite Negative (NEG) Urine Bilirubin Negative (NEG) Urine Urobilinogen Dipstick 1.0 mg/dL (0.2 mg/dL) Urine Leukocyte Esterase Negative (NEG) Urine RBC 0 /HPF (0-2) Urine WBC 0 /HPF (0-4) Urine Squamous Epithelial Cells None /LPF Urine Bacteria 0 /HPF (0-FEW) Urine Mucus Slight /LPF Urine Opiates Screen Pos (NEG) Urine Methadone Screen Neg (NEG) Urine Barbiturates Neg (NEG) Urine Phencyclidine Screen Neg (NEG) Urine Amphetamine/Methamphetamine Neg (NEG) Urine Benzodiazepines Screen Pos (NEG) Urine Cocaine Screen Neg (NEG) Urine Cannabinoids Screen Neg (NEG) Urine Ethyl Alcohol Neg (NEG) White Blood Count 7.1 x10^3/uL (4.0-11.0) 5.5 x10^3/uL (4.0-11.0) Red Blood Count 4.37 x10^6/uL (3.50-5.40) 4.28 x10^6/uL (3.50-5.40) Hemoglobin 11.0 g/dL (12.0-15.5) 10.7 g/dL (12.0-15.5) Hematocrit 33.7 % (36.0-47.0) 32.9 % (36.0-47.0) Mean Corpuscular Volume 77 fL (79-100) 77 fL (79-100) Mean Corpuscular Hemoglobin 25 pg (25-35) 25 pg (25-35) Mean Corpuscular Hemoglobin Concent 33 g/dL (31-37) 33 g/dL (31-37) Red Cell Distribution Width 17.1 % (11.5-14.5) 17.1 % (11.5-14.5) Platelet Count 271 x10^3/uL (140-400) 256 x10^3/uL (140-400) Neutrophils (%) (Auto) 80 % (31-73) 77 % (31-73) Lymphocytes (%) (Auto) 10 % (24-48) 12 % (24-48) Monocytes (%) (Auto) 8 % (0-9) 9 % (0-9) Eosinophils (%) (Auto) 1 % (0-3) 1 % (0-3) Basophils (%) (Auto) 1 % (0-3) 1 % (0-3) Neutrophils # (Auto) 5.7 x10^3/uL (1.8-7.7) 4.2 x10^3/uL (1.8-7.7) Lymphocytes # (Auto) 0.7 x10^3/uL (1.0-4.8) 0.7 x10^3/uL (1.0-4.8) Monocytes # (Auto) 0.6 x10^3/uL (0.0-1.1) 0.5 x10^3/uL (0.0-1.1) Eosinophils # (Auto) 0.1 x10^3/uL (0.0-0.7) 0.1 x10^3/uL (0.0-0.7) Basophils # (Auto) 0.1 x10^3/uL (0.0-0.2) 0.0 x10^3/uL (0.0-0.2) Prothrombin Time 12.6 SEC (11.7-14.0) Prothromb Time International Ratio 1.0 (0.8-1.1) Activated Partial Thromboplast Time 30 SEC (24-38) Sodium Level 140 mmol/L (136-145) 144 mmol/L (136-145) Potassium Level 4.9 mmol/L (3.5-5.1) 3.9 mmol/L (3.5-5.1) Chloride Level 103 mmol/L (98-107) 108 mmol/L (98-107) Carbon Dioxide Level 27 mmol/L (21-32) 25 mmol/L (21-32) Anion Gap 10 (6-14) 11 (6-14) Blood Urea Nitrogen 50 mg/dL (7-20) 28 mg/dL (7-20) Creatinine 1.5 mg/dL (0.6-1.0) 1.2 mg/dL (0.6-1.0) Estimated GFR (Cockcroft-Gault) 35.4 45.8 BUN/Creatinine Ratio 33 (6-20) 23 (6-20) Glucose Level 103 mg/dL (70-99) 77 mg/dL (70-99) Lactic Acid Level 0.7 mmol/L (0.4-2.0) Calcium Level 9.1 mg/dL (8.5-10.1) 8.9 mg/dL (8.5-10.1) Magnesium Level 2.0 mg/dL (1.8-2.4) Total Bilirubin 0.4 mg/dL (0.2-1.0) 0.5 mg/dL (0.2-1.0) Aspartate Amino Transf (AST/SGOT) 17 U/L (15-37) 13 U/L (15-37) Alanine Aminotransferase (ALT/SGPT) 17 U/L (14-59) 16 U/L (14-59) Alkaline Phosphatase 86 U/L (46-116) 69 U/L (46-116) Ammonia < 10 mcmol/L (11-34) Creatine Kinase 197 U/L (26-192) Creatine Kinase MB (Mass) 3.5 ng/mL (0.0-3.6) Creatine Kinase MB Relative Index 1.8 % (0-4) Troponin I Quantitative < 0.017 ng/mL (0.000-0.055) GS-Kjd-H-Type Natriuretic Peptide 182 pg/mL (0-124) Total Protein 7.1 g/dL (6.4-8.2) 6.4 g/dL (6.4-8.2) Albumin 3.7 g/dL (3.4-5.0) 3.1 g/dL (3.4-5.0) Albumin/Globulin Ratio 1.1 (1.0-1.7) 0.9 (1.0-1.7) Amylase Level 23 U/L (25-115) Lipase 92 U/L (73-393) Procalcitonin < 0.10 ng/mL (0.00-0.10) Thyroid Stimulating Hormone (TSH) 1.597 uIU/mL (0.358-3.74) Salicylates Level < 2.8 mg/dL (2.8-20.0) Salicylate Last Dose Date Unknown Salicylate Last Dose Time Unknown Acetaminophen Level < 2 mcg/ml (10-30) Acetaminophen Last Dose Date Unknown Acetaminophen Last Dose Time Unknown Ethyl Alcohol Level < 10 mg/dL (0-10) Segmented Neutrophils % 81 % (35-66) Lymphocytes % 8 % (24-48) Monocytes % 10 % (0-10) Basophils % 1 % (0-3) Platelet Estimate Adequate (ADEQUATE) Glucose (Fingerstick) 88 mg/dL (70-99) Laboratory Tests Test 04/28/19 05:04 11/1/19 12:58 White Blood Count 5.5 x10^3/uL (4.0-11.0) Red Blood Count 4.28 x10^6/uL (3.50-5.40) Hemoglobin 10.7 g/dL (12.0-15.5) Hematocrit 32.9 % (36.0-47.0) Mean Corpuscular Volume 77 fL (79-100) Mean Corpuscular Hemoglobin 25 pg (25-35) Mean Corpuscular Hemoglobin Concent 33 g/dL (31-37) Red Cell Distribution Width 17.1 % (11.5-14.5) Platelet Count 256 x10^3/uL (140-400) Neutrophils (%) (Auto) 77 % (31-73) Lymphocytes (%) (Auto) 12 % (24-48) Monocytes (%) (Auto) 9 % (0-9) Eosinophils (%) (Auto) 1 % (0-3) Basophils (%) (Auto) 1 % (0-3) Neutrophils # (Auto) 4.2 x10^3/uL (1.8-7.7) Lymphocytes # (Auto) 0.7 x10^3/uL (1.0-4.8) Monocytes # (Auto) 0.5 x10^3/uL (0.0-1.1) Eosinophils # (Auto) 0.1 x10^3/uL (0.0-0.7) Basophils # (Auto) 0.0 x10^3/uL (0.0-0.2) Segmented Neutrophils % 81 % (35-66) Lymphocytes % 8 % (24-48) Monocytes % 10 % (0-10) Basophils % 1 % (0-3) Platelet Estimate Adequate (ADEQUATE) Sodium Level 144 mmol/L (136-145) Potassium Level 3.9 mmol/L (3.5-5.1) Chloride Level 108 mmol/L (98-107) Carbon Dioxide Level 25 mmol/L (21-32) Anion Gap 11 (6-14) Blood Urea Nitrogen 28 mg/dL (7-20) Creatinine 1.2 mg/dL (0.6-1.0) Estimated GFR (Cockcroft-Gault) 45.8 BUN/Creatinine Ratio 23 (6-20) Glucose Level 77 mg/dL (70-99) Calcium Level 8.9 mg/dL (8.5-10.1) Total Bilirubin 0.5 mg/dL (0.2-1.0) Aspartate Amino Transf (AST/SGOT) 13 U/L (15-37) Alanine Aminotransferase (ALT/SGPT) 16 U/L (14-59) Alkaline Phosphatase 69 U/L (46-116) Total Protein 6.4 g/dL (6.4-8.2) Albumin 3.1 g/dL (3.4-5.0) Albumin/Globulin Ratio 0.9 (1.0-1.7) Glucose (Fingerstick) 88 mg/dL (70-99) Microbiology 04/27/19 Blood Culture - Preliminary, Resulted NO GROWTH AFTER 1 DAY Medications Current Medications Sodium Chloride 1,000 ml @ 1,500 mls/hr Q40M IV Last administered on 04/27/19at 14:37; Start 04/27/19 at 11:21; Stop 04/27/19 at 12:20; Status DC Ondansetron HCl (Zofran) 4 mg PRN Q8HRS PRN IV NAUSEA/VOMITING; Start 04/27/19 at 14:30; Stop 04/28/19 at 14:29; Status DC Acetaminophen (Tylenol) 650 mg PRN Q4HRS PRN PO FEVER; Start 04/27/19 at 14:30; Stop 04/28/19 at 14:29; Status DC Sodium Chloride 1,000 ml @ 75 mls/hr 1X ONCE IV Last administered on 04/27/19at 21:33; Start 04/27/19 at 14:30; Stop 04/28/19 at 03:49; Status DC Levofloxacin/ Dextrose 100 ml @ 100 mls/hr Q24H IV Last administered on 04/27/19at 18:20; Start 04/27/19 at 18:00 Sodium Chloride 1,000 ml @ 100 mls/hr Q10H IV Last administered on 04/28/19at 13:51; Start 04/28/19 at 11:15 Insulin Human Lispro (HumaLOG) 0-7 UNITS TIDWMEALS SQ ; Start 04/28/19 at 12:00 Dextrose (Dextrose 50%-Water Syringe) 12.5 gm PRN Q15MIN PRN IV SEE COMMENTS; Start 04/28/19 at 11:15 Oxycodone/ Acetaminophen (Percocet 5/325) 1 tab PRN Q4HRS PRN PO PAIN; Start 04/28/19 at 11:30 Active Scripts Active Levalbuterol Concentrate (Levalbuterol Hcl) 1.25 Mg/0.5 Ml Vial.neb 1.25 Mg NEB RTQID 30 Days [place] 10-325 Tablet (Acetaminophen/Hydrocodone Bitart) 1 Each Tablet 1 Tab PO P RN Q6HRS PRN 30 Days Reported Advair 250-50 Diskus (Fluticasone/Salmeterol) 1 Each Disk.w.dev 1 Puff IH BID Atorvastatin Calcium 80 Mg Tablet 80 Mg PO HS Lyrica (Pregabalin) 200 Mg Capsule 1 Cap PO TID Belsomra (Suvorexant) 20 Mg Tablet 20 Mg PO HS Xanax (Alprazolam) 0.5 Mg Tablet 1 Tab PO DAILY Cymbalta (Duloxetine Hcl) 60 Mg Capsule.dr 2 Cap PO DAILY Wellbutrin Xl (Bupropion Hcl) 300 Mg Tab.er.24h 1 Tab PO DAILY Vitals/I & O Vital Sign - Last 24 Hours 04/27/19 04/27/19 04/27/19 04/27/19 15:40 16:09 16:40 17:00 Temp 97.8 97.8 Pulse 96 94 96 Resp 16 B/P (MAP) 157/87 (110) Pulse Ox 99 100 96 O2 Delivery Room Air Room Air 04/27/19 04/27/19 04/28/19 04/28/19 19:00 23:00 03:00 07:00 Temp 98.3 98.2 98.4 97.8 98.3 98.2 98.4 97.8 Pulse 95 96 101 88 Resp 20 20 20 18 B/P (MAP) 128/76 (93) 125/66 (85) 144/73 (96) 124/82 (96) Pulse Ox 95 94 97 95 O2 Delivery Room Air Room Air Room Air Room Air 04/28/19 11:00 Temp 97.7 97.7 Pulse 76 Resp 18 B/P (MAP) 153/85 (107) Pulse Ox 94 O2 Delivery Room Air Intake and Output 04/27/19 04/27/19 04/28/19 15:00 23:00 07:00 Intake Total 1000 ml 200 ml 200 ml Output Total 500 ml 200 ml Balance 1000 ml -300 ml 0 ml VAISHALI HERZOG MD Apr 28, 2019 15:39
[2019-04-28] MEDS ORDERED: ZOLPIDEM 5 MG TABLET. PO PRN (15:45)
[2019-04-28] MEDS ORDERED: ALBUTEROL SULFATE 2.5 MG/3 ML NEBU. NEB SCH (16:00)
--- NOTE | 2019-04-28 16:44 | NUR ---
Wound Care Wound care consult for multiple wounds. Pt has skin tear to left arm and hand. Applied Xeroform and telfa to arm and left hand PHYLLIS with skin prep. Pt has scabs to 2nd and 3rd toes to left foot. 3rd toe is scabbed. 2nd toe is scabbed but reddened ans swollen. Discussed with Dr Kerns who would like Dr Pryor to assess. No other wounds noted on full skin inspection. WC will continue to follow for possible changes.
[2019-04-28] MEDS ORDERED: ALBUTEROL SULFATE 2.5 MG/3 ML NEBU. NEB PRN (18:45)
[2019-04-28 19:00] VITALS: BP 136/75
[2019-04-28] MEDS: BUDESONIDE 0.5 MG/2 ML NEBU. NEB SCH (19:47)
[2019-04-28] MEDS: PREGABALIN 50 MG CAPSULE PO SCH (20:24)
[2019-04-28] MEDS: oxyCODONE/APAP 5/325 1 TAB TABLET PO PRN (20:24)
[2019-04-28] MEDS ORDERED: ATORVASTATIN CALCIUM 40 MG TABLET. PO SCH (21:00)
[2019-04-28 23:01] VITALS: BP 150/83
[2019-04-29] MEDS: IV NORMAL SALINE 1000ML BAG 1,000 ML IV SCH (00:15)
[2019-04-29] MEDS: oxyCODONE/APAP 5/325 1 TAB TABLET PO PRN (00:16)
[2019-04-29 03:23] VITALS: BP 137/80
[2019-04-29] MEDS: HYDROcodone/APAP 10/325 1 TAB TABLET PO PRN ×2 (04:30→11:54)
[2019-04-29 05:26] LABS: BASO # 0.1 x10^3/uL (0.0-0.2); BASO % 1 % (0-3); EOS # 0.1 x10^3/uL (0.0-0.7); EOS % 3 % (0-3); HEMATOCRIT 31.9 % (36.0-47.0); HEMOGLOBIN 10.5 g/dL (12.0-15.5); LYMPH # 0.9 x10^3/uL (1.0-4.8); LYMPH % 20 % (24-48); MEAN CORPUSCULAR HEMOGLOBIN 25 pg (25-35); MEAN CORPUSCULAR HGB CONC 33 g/dL (31-37); MEAN CORPUSCULAR VOLUME 76 fL (79-100); MONO # 0.4 x10^3/uL (0.0-1.1); MONO % 10 % (0-9); NEUT % 66 % (31-73); PLATELET COUNT 259 x10^3/uL (140-400); RED CELL DISTRIBUTION WIDTH 16.8 % (11.5-14.5); WHITE BLOOD COUNT 4.5 x10^3/uL (4.0-11.0)
[2019-04-29 06:03] LABS: ALBUMIN 2.9 g/dL (3.4-5.0); ALBUMIN/GLOBULIN RATIO 0.9 (1.0-1.7); CALCIUM 8.4 mg/dL (8.5-10.1); CREATININE 1.1 mg/dL (0.6-1.0); GFR 50.7; POTASSIUM 3.7 mmol/L (3.5-5.1); TOTAL BILIRUBIN 0.4 mg/dL (0.2-1.0)
[2019-04-29 07:00] VITALS: BP 143/82
[2019-04-29] MEDS: BUDESONIDE 0.5 MG/2 ML NEBU. NEB SCH (07:19)
[2019-04-29] MEDS: INSULIN LISPRO 300 UNITS/3 ML VIAL. SQ SCH (08:00)
--- NOTE | 2019-04-29 08:41 | SNU/HH DC ---
DISCHARGE WITH HOME HEALTH DISCHARGE INFORMATION: Discharge Date: Apr 29, 2019 Final Diagnosis: Problems Medical Problems: (1) AMS (altered mental status) Status: Acute (2) CKD (chronic kidney disease) Status: Acute Condition on Discharge: Stable CODE STATUS: Code Status: Full HOME HEALTH: Face to Face: I certify this patient is under my care and that I, or a nurse practitioner or physician's patient services assistant working with me, had a face to face encounter that meets the physician face to face encounter requirements with this patient on []. RN For Eval/Treatment: Yes Physical Therapy For: Evalulation/Treatment Occupational Therapy For: Evaluation/Treatment Speech Language Pathology For: Evaluation/Treatment Home Health Aide For: Self-care MEDICAL SUPPORT ASSISTANT For: Community Resources Pt Meets Homebound Status: Extreme weakness w/ amb. POST DISCHARGE ORDERS: Activity Instructions for Disc: Activity as tolerated Bathing Instructions: Shower-keep dressing dry CHECKS AFTER DISCHARGE: Checks after discharge: Check blood press - daily FOLLOW-UP: PCP to follow Home Health: pcp prn TREATMENT/EQUIPMENT ORDERS: Adaptive Equipment Issued: Front wheeled walker CERTIFICATION STATEMENT: Certification Statement: Certification Statement: Based on the above finding, I certify that this patient is confined to the home and needs intermittent mcfp care, physical therapy and/or speech therapy, or continues to need occupational therapy.~ This patient is under my care, and I have initiated the establishment of the plan of care.~ This patient will be followed by myself or a community physician who will periodically review the plan of care. Home Meds Active Scripts Levalbuterol Hcl (LEVALBUTEROL CONCENTRATE) 1.25 Mg/0.5 Ml Vial.neb, 1.25 MG NEB RTQID for 30 Days, EACH Prov:ERIN SANDHU MD 12/13/17 Hydrocodone/Ap[place] 10-325 (NORCO 10-325 TABLET) 1 Each Tablet, 1 TAB PO PRN Q6HRS PRN for PAIN for 30 Days, TAB 0 Refills Prov:ERIN SANDHU MD 12/13/17 Reported Medications Fluticasone/Salmeterol (ADVAIR 250-50 DISKUS) 1 Each Disk.w.dev, 1 PUFF IH BID, #3 INHALER 3 Refills 12/09/17 Atorvastatin Calcium (ATORVASTATIN CALCIUM) 80 Mg Tablet, 80 MG PO HS for FOR CHOLESTEROL, #30 TAB 0 Refills 12/09/17 Pregabalin (LYRICA) 200 Mg Capsule, 1 CAP PO TID, #90 CAP 12/09/17 Suvorexant (Belsomra) 20 Mg Tablet, 20 MG PO HS for insomnia, TAB 12/09/17 Alprazolam (XANAX) 0.5 Mg Tablet, 1 TAB PO DAILY, #30 TAB 12/09/17 Duloxetine Hcl (CYMBALTA) 60 Mg Capsule.dr, 2 CAP PO DAILY, #30 CAP 2 Refills 12/09/17 Bupropion Hcl (WELLBUTRIN XL) 300 Mg Tab.er.24h, 1 TAB PO DAILY, #90 TAB 3 Refills 12/09/17 ERIN SANDHU MD Apr 29, 2019 08:41
[2019-04-29] MEDS ORDERED: buPROPion XL 150 MG TAB.ER.24H. PO SCH (09:00)
[2019-04-29] MEDS ORDERED: ALPRAZolam 0.5 MG TABLET PO SCH (09:00)
[2019-04-29] MEDS ORDERED: DULoxetine HCL 30 MG CAPSULE.DR PO SCH (09:00)
[2019-04-29] MEDS: PREGABALIN 50 MG CAPSULE PO SCH (09:27)
[2019-04-29 11:00] VITALS: BP 158/104
--- NOTE | 2019-04-29 11:00 | PDOC3 ---
Discharge Summary Visit Information Date of Admission: Apr 28, 2019 Date of Discharge: Apr 29, 2019 Admitting Diagnosis Comment: acute metabolic encephalopathy, reoslved on its own, unclear etiology -could not be determined acute on chronic renal failure,resolved azotemia. left second toe lesion- dry looks good! obesity, BMI 38 diffuse acute on chronic pain, chronic Final Diagnosis Problems Medical Problems: (1) AMS (altered mental status) Status: Acute (2) CKD (chronic kidney disease) Status: Acute Brief Hospital Course Allergies Allergies Coded Allergies Type Severity Reaction Last Updated Verified sulfamethoxazole Allergy Intermediate Hives 12/25/17 Yes trimethoprim Allergy Intermediate Hives 12/25/17 Yes Vital Signs Vital Signs Date Time Temp Pulse Resp B/P (MAP) Pulse Ox O2 Delivery O2 Flow Rate FiO2 04/29/19 07:22 96 Room Air 04/29/19 07:00 98.2 81 20 143/82 (102) 98.2 Lab Results Laboratory Tests Test 04/27/19 11:25 04/27/19 12:15 04/28/19 05:04 04/28/19 12:58 Urine Collection Type U cath Urine Color Yellow Urine Clarity Clear Urine pH 5.0 Urine Specific [place] 1.020 Urine Protein Negative mg/dL (NEG-TRACE) Urine Glucose (UA) Negative mg/dL (NEG) Urine Ketones (Stick) Trace mg/dL (NEG) Urine Blood Negative (NEG) Urine Nitrite Negative (NEG) Urine Bilirubin Negative (NEG) Urine Urobilinogen Dipstick 1.0 mg/dL (0.2 mg/dL) Urine Leukocyte Esterase Negative (NEG) Urine RBC 0 /HPF (0-2) Urine WBC 0 /HPF (0-4) Urine Squamous Epithelial Cells None /LPF Urine Bacteria 0 /HPF (0-FEW) Urine Mucus Slight /LPF Urine Opiates Screen Pos (NEG) Urine Methadone Screen Neg (NEG) Urine Barbiturates Neg (NEG) Urine Phencyclidine Screen Neg (NEG) Urine Amphetamine/Methamphetamine Neg (NEG) Urine Benzodiazepines Screen Pos (NEG) Urine Cocaine Screen Neg (NEG) Urine Cannabinoids Screen Neg (NEG) Urine Ethyl Alcohol Neg (NEG) White Blood Count 7.1 x10^3/uL (4.0-11.0) 5.5 x10^3/uL (4.0-11.0) Red Blood Count 4.37 x10^6/uL (3.50-5.40) 4.28 x10^6/uL (3.50-5.40) Hemoglobin 11.0 g/dL (12.0-15.5) 10.7 g/dL (12.0-15.5) Hematocrit 33.7 % (36.0-47.0) 32.9 % (36.0-47.0) Mean Corpuscular Volume 77 fL (79-100) 77 fL (79-100) Mean Corpuscular Hemoglobin 25 pg (25-35) 25 pg (25-35) Mean Corpuscular Hemoglobin Concent 33 g/dL (31-37) 33 g/dL (31-37) Red Cell Distribution Width 17.1 % (11.5-14.5) 17.1 % (11.5-14.5) Platelet Count 271 x10^3/uL (140-400) 256 x10^3/uL (140-400) Neutrophils (%) (Auto) 80 % (31-73) 77 % (31-73) Lymphocytes (%) (Auto) 10 % (24-48) 12 % (24-48) Monocytes (%) (Auto) 8 % (0-9) 9 % (0-9) Eosinophils (%) (Auto) 1 % (0-3) 1 % (0-3) Basophils (%) (Auto) 1 % (0-3) 1 % (0-3) Neutrophils # (Auto) 5.7 x10^3/uL (1.8-7.7) 4.2 x10^3/uL (1.8-7.7) Lymphocytes # (Auto) 0.7 x10^3/uL (1.0-4.8) 0.7 x10^3/uL (1.0-4.8) Monocytes # (Auto) 0.6 x10^3/uL (0.0-1.1) 0.5 x10^3/uL (0.0-1.1) Eosinophils # (Auto) 0.1 x10^3/uL (0.0-0.7) 0.1 x10^3/uL (0.0-0.7) Basophils # (Auto) 0.1 x10^3/uL (0.0-0.2) 0.0 x10^3/uL (0.0-0.2) Prothrombin Time 12.6 SEC (11.7-14.0) Prothromb Time International Ratio 1.0 (0.8-1.1) Activated Partial Thromboplast Time 30 SEC (24-38) Sodium Level 140 mmol/L (136-145) 144 mmol/L (136-145) Potassium Level 4.9 mmol/L (3.5-5.1) 3.9 mmol/L (3.5-5.1) Chloride Level 103 mmol/L (98-107) 108 mmol/L (98-107) Carbon Dioxide Level 27 mmol/L (21-32) 25 mmol/L (21-32) Anion Gap 10 (6-14) 11 (6-14) Blood Urea Nitrogen 50 mg/dL (7-20) 28 mg/dL (7-20) Creatinine 1.5 mg/dL (0.6-1.0) 1.2 mg/dL (0.6-1.0) Estimated GFR (Cockcroft-Gault) 35.4 45.8 BUN/Creatinine Ratio 33 (6-20) 23 (6-20) Glucose Level 103 mg/dL (70-99) 77 mg/dL (70-99) Lactic Acid Level 0.7 mmol/L (0.4-2.0) Calcium Level 9.1 mg/dL (8.5-10.1) 8.9 mg/dL (8.5-10.1) Magnesium Level 2.0 mg/dL (1.8-2.4) Total Bilirubin 0.4 mg/dL (0.2-1.0) 0.5 mg/dL (0.2-1.0) Aspartate Amino Transf (AST/SGOT) 17 U/L (15-37) 13 U/L (15-37) Alanine Aminotransferase (ALT/SGPT) 17 U/L (14-59) 16 U/L (14-59) Alkaline Phosphatase 86 U/L (46-116) 69 U/L (46-116) Ammonia < 10 mcmol/L (11-34) Creatine Kinase 197 U/L (26-192) Creatine Kinase MB (Mass) 3.5 ng/mL (0.0-3.6) Creatine Kinase MB Relative Index 1.8 % (0-4) Troponin I Quantitative < 0.017 ng/mL (0.000-0.055) PH-Drf-O-Type Natriuretic Peptide 182 pg/mL (0-124) Total Protein 7.1 g/dL (6.4-8.2) 6.4 g/dL (6.4-8.2) Albumin 3.7 g/dL (3.4-5.0) 3.1 g/dL (3.4-5.0) Albumin/Globulin Ratio 1.1 (1.0-1.7) 0.9 (1.0-1.7) Amylase Level 23 U/L (25-115) Lipase 92 U/L (73-393) Procalcitonin < 0.10 ng/mL (0.00-0.10) Thyroid Stimulating Hormone (TSH) 1.597 uIU/mL (0.358-3.74) Salicylates Level < 2.8 mg/dL (2.8-20.0) Salicylate Last Dose Date Unknown Salicylate Last Dose Time Unknown Acetaminophen Level < 2 mcg/ml (10-30) Acetaminophen Last Dose Date Unknown Acetaminophen Last Dose Time Unknown Ethyl Alcohol Level < 10 mg/dL (0-10) Segmented Neutrophils % 81 % (35-66) Lymphocytes % 8 % (24-48) Monocytes % 10 % (0-10) Basophils % 1 % (0-3) Platelet Estimate Adequate (ADEQUATE) Glucose (Fingerstick) 88 mg/dL (70-99) Test 04/28/19 16:30 04/28/19 20:39 04/29/19 04:35 04/29/19 07:13 Glucose (Fingerstick) 73 mg/dL (70-99) 70 mg/dL (70-99) 74 mg/dL (70-99) White Blood Count 4.5 x10^3/uL (4.0-11.0) Red Blood Count 4.20 x10^6/uL (3.50-5.40) Hemoglobin 10.5 g/dL (12.0-15.5) Hematocrit 31.9 % (36.0-47.0) Mean Corpuscular Volume 76 fL (79-100) Mean Corpuscular Hemoglobin 25 pg (25-35) Mean Corpuscular Hemoglobin Concent 33 g/dL (31-37) Red Cell Distribution Width 16.8 % (11.5-14.5) Platelet Count 259 x10^3/uL (140-400) Neutrophils (%) (Auto) 66 % (31-73) Lymphocytes (%) (Auto) 20 % (24-48) Monocytes (%) (Auto) 10 % (0-9) Eosinophils (%) (Auto) 3 % (0-3) Basophils (%) (Auto) 1 % (0-3) Neutrophils # (Auto) 3.0 x10^3/uL (1.8-7.7) Lymphocytes # (Auto) 0.9 x10^3/uL (1.0-4.8) Monocytes # (Auto) 0.4 x10^3/uL (0.0-1.1) Eosinophils # (Auto) 0.1 x10^3/uL (0.0-0.7) Basophils # (Auto) 0.1 x10^3/uL (0.0-0.2) Erythrocyte Sedimentation Rate 11 (0-25) Sodium Level 143 mmol/L (136-145) Potassium Level 3.7 mmol/L (3.5-5.1) Chloride Level 107 mmol/L (98-107) Carbon Dioxide Level 24 mmol/L (21-32) Anion Gap 12 (6-14) Blood Urea Nitrogen 18 mg/dL (7-20) Creatinine 1.1 mg/dL (0.6-1.0) Estimated GFR (Cockcroft-Gault) 50.7 BUN/Creatinine Ratio 16 (6-20) Glucose Level 81 mg/dL (70-99) Calcium Level 8.4 mg/dL (8.5-10.1) Iron Level 39 ug/dL (50-170) Total Iron Binding Capacity 189 ug/dL (250-450) Iron Saturation 21 % (15-34) Total Bilirubin 0.4 mg/dL (0.2-1.0) Aspartate Amino Transf (AST/SGOT) 15 U/L (15-37) Alanine Aminotransferase (ALT/SGPT) 15 U/L (14-59) Alkaline Phosphatase 67 U/L (46-116) Ammonia < 10 mcmol/L (11-34) Total Protein 6.0 g/dL (6.4-8.2) Albumin 2.9 g/dL (3.4-5.0) Albumin/Globulin Ratio 0.9 (1.0-1.7) Laboratory Tests Test 04/28/19 12:58 04/28/19 16:30 04/28/19 20:39 04/29/19 04:35 Glucose (Fingerstick) 88 mg/dL (70-99) 73 mg/dL (70-99) 70 mg/dL (70-99) White Blood Count 4.5 x10^3/uL (4.0-11.0) Red Blood Count 4.20 x10^6/uL (3.50-5.40) Hemoglobin 10.5 g/dL (12.0-15.5) Hematocrit 31.9 % (36.0-47.0) Mean Corpuscular Volume 76 fL (79-100) Mean Corpuscular Hemoglobin 25 pg (25-35) Mean Corpuscular Hemoglobin Concent 33 g/dL (31-37) Red Cell Distribution Width 16.8 % (11.5-14.5) Platelet Count 259 x10^3/uL (140-400) Neutrophils (%) (Auto) 66 % (31-73) Lymphocytes (%) (Auto) 20 % (24-48) Monocytes (%) (Auto) 10 % (0-9) Eosinophils (%) (Auto) 3 % (0-3) Basophils (%) (Auto) 1 % (0-3) Neutrophils # (Auto) 3.0 x10^3/uL (1.8-7.7) Lymphocytes # (Auto) 0.9 x10^3/uL (1.0-4.8) Monocytes # (Auto) 0.4 x10^3/uL (0.0-1.1) Eosinophils # (Auto) 0.1 x10^3/uL (0.0-0.7) Basophils # (Auto) 0.1 x10^3/uL (0.0-0.2) Erythrocyte Sedimentation Rate 11 (0-25) Sodium Level 143 mmol/L (136-145) Potassium Level 3.7 mmol/L (3.5-5.1) Chloride Level 107 mmol/L (98-107) Carbon Dioxide Level 24 mmol/L (21-32) Anion Gap 12 (6-14) Blood Urea Nitrogen 18 mg/dL (7-20) Creatinine 1.1 mg/dL (0.6-1.0) Estimated GFR (Cockcroft-Gault) 50.7 BUN/Creatinine Ratio 16 (6-20) Glucose Level 81 mg/dL (70-99) Calcium Level 8.4 mg/dL (8.5-10.1) Iron Level 39 ug/dL (50-170) Total Iron Binding Capacity 189 ug/dL (250-450) Iron Saturation 21 % (15-34) Total Bilirubin 0.4 mg/dL (0.2-1.0) Aspartate Amino Transf (AST/SGOT) 15 U/L (15-37) Alanine Aminotransferase (ALT/SGPT) 15 U/L (14-59) Alkaline Phosphatase 67 U/L (46-116) Ammonia < 10 mcmol/L (11-34) Total Protein 6.0 g/dL (6.4-8.2) Albumin 2.9 g/dL (3.4-5.0) Albumin/Globulin Ratio 0.9 (1.0-1.7) Test 04/29/19 07:13 Glucose (Fingerstick) 74 mg/dL (70-99) Brief Hospital Course Ms. Jensen is a 59 old on some meds came in confused with unclear etiology, no UTI, no stroke, no wound on toe (looks good), enceph resolved on its own, Maybe med induced? She is back to her baseline, home today with NO pT needs, ff up PCP prn Stayed oBS dw RN Emilio Discharge Information Condition at Discharge: Improved, Stable Disposition/Orders: D/C to Home Scheduled Alprazolam (Xanax) 0.5 Mg Tablet, 1 TAB PO DAILY, #30 (Reported) Entered as Reported by: JESSICA FULTON on 12/09/17950 Last Action: Continued on 04/28/191537 by VAISHALI HERZOG Atorvastatin Calcium (Atorvastatin Calcium) 80 Mg Tablet, 80 MG PO HS for FOR CHOLESTEROL, #30 Ref 0 (Reported) Entered as Reported by: JESSICA FULTON on 12/09/17950 Last Action: Converted on 04/28/191537 by VAISHALI HERZOG Bupropion Hcl (Wellbutrin Xl) 300 Mg Tab.er.24h, 1 TAB PO DAILY, #90 Ref 3 (Reported) Entered as Reported by: JESSICA FULTON on 12/09/17950 Last Action: Converted on 04/28/191537 by VAISHALI HERZOG Duloxetine Hcl (Cymbalta) 60 Mg Capsule.dr, 2 CAP PO DAILY, #30 Ref 2 (Reported) Entered as Reported by: JESSICA FULTON on 12/09/17950 Last Action: Converted on 04/28/191537 by VAISHALI HERZOG Fluticasone/Salmeterol (Advair 250-50 Diskus) 1 Each Disk.w.dev, 1 PUFF IH BID, #3 Ref 3 (Reported) Entered as Reported by: JESSICA FULTON on 12/09/17950 Last Action: Converted on 04/28/191537 by VAISHALI HERZOG Levalbuterol Hcl (Levalbuterol Concentrate) 1.25 Mg/0.5 Ml Vial.neb, 1.25 MG NEB RTQID for 30 Days Prescribed by: ERIN SANDHU on 12/13/17910 Last Action: Continued on 04/28/191537 by VAISHALI HERZOG Pregabalin (Lyrica) 200 Mg Capsule, 1 CAP PO TID, #90 (Reported) Entered as Reported by: JESSICA FULTON on 12/09/17950 Last Action: Converted on 04/28/191537 by VAISHALI HERZOG Suvorexant (Belsomra) 20 Mg Tablet, 20 MG PO HS for insomnia, (Reported) Entered as Reported by: JESSICA FULTON on 12/09/17950 Last Action: HELD on 04/28/191537 by VAISHALI HERZOG Scheduled PRN Hydrocodone/Apap 10-325 ([place] 10-325 Tablet) 1 Each Tablet, 1 TAB PO PRN Q6HRS PRN for PAIN for 30 Days, Ref 0 Prescribed by: ERIN SANDHU on 12/13/17910 Last Action: Continued on 04/28/191537 by ERIN PEREZ MD Apr 29, 2019 11:00
--- NOTE | 2019-04-29 13:27 | NUR ---
pt discharged home with renny KEEN. wounds pictured and placed in chart. meds and follow up reviewed, pt v/u. IV's X3 removed, cath intact. pt stable upon dc.
[2019-05-01 18:13] LABS: ALPHA 1 0.2 g/dL (0.0-0.4); ALPHA 2 0.6 g/dL (0.4-1.0); BETA 0.9 g/dL (0.7-1.3); GAMMA 0.7 g/dL (0.4-1.8); PROTEIN TOTAL 5.5 g/dL (6.0-8.5); SPEP AG RATIO 1.2 (0.7-1.7)
[2019-05-02 11:11] LABS: ANA INTERP Negative (.)
== END 2019-04-29 13:00 | disposition home health service (06) | DRG 682 ==
LOC: ER 11:10 → ED HOLD 13:32 → 5 SOUTH 16:20
PROVIDERS: ADMIT Internal Medicine; ATTEND Internal Medicine
DX: N17.9 Acute kidney failure, unspecified (principal); G93.41 Metabolic encephalopathy; N39.0 Urinary tract infection, site not specified; D64.9 Anemia, unspecified; E11.22 Type 2 diabetes mellitus with diabetic chronic kidney disease; E11.40 Type 2 diabetes mellitus with diabetic neuropathy, unspecified; E66.9 Obesity, unspecified; E78.00 Pure hypercholesterolemia, unspecified; E78.5 Hyperlipidemia, unspecified; G89.29 Other chronic pain; I12.9 Hypertensive chronic kidney disease with stage 1 through stage 4 chronic kidney disease, or unspecified chronic kidney disease; J44.9 Chronic obstructive pulmonary disease, unspecified; N18.9 Chronic kidney disease, unspecified; R13.10 Dysphagia, unspecified; F32.9 Major depressive disorder, single episode, unspecified; F41.9 Anxiety disorder, unspecified; Z68.38 Body mass index [BMI] 38.0-38.9, adult; Z79.51 Long term (current) use of inhaled steroids; Z79.899 Other long term (current) drug therapy; Z82.49 Family history of ischemic heart disease and other diseases of the circulatory system; Z87.891 Personal history of nicotine dependence; Z90.49 Acquired absence of other specified parts of digestive tract; Z90.710 Acquired absence of both cervix and uterus; Z90.5 Acquired absence of kidney; Z83.3 Family history of diabetes mellitus; Z68.37 Body mass index [BMI] 37.0-37.9, adult; Z88.2 Allergy status to sulfonamides; Z88.8 Allergy status to other drugs, medicaments and biological substances
CPT/HCPCS: 36415; 70450; 71045; 80053; 80307; 80329; 81001; 82140; 82150; 82553; 82607; 82962; 83540; 83550; 83605; 83690; 83735; 83880; 84145; 84165; 84443; 84484; 85007; 85025; 85610; 85651; 85730; 86038; 87040; 93005; 94640; 94760; 96360; 96361; G0480; J1815; J1956; J7030; J7626; 92610; 99285-25; G0378

== ENCOUNTER 2019-06-26 20:17 | Inpatient (IN) | payer MEDICARE, MEDICAID ==
[~2019-06-26] VITALS: Ht 157.5 cm; Wt 91.2 kg
[~2019-06-26 20:17] MED LIST changes: +ACET325T9 PO; +BUPR150T6 PO; +DOCU-153 PO; +GUAI100L12 PO; +IPRA0.2S5 NEB; +LACT1CAP19 PO; +LEVO500T59 PO; +PRED-220 PO
[2019-06-26 21:19] LABS: BASO % 0 % (0-3); EOS % 0 % (0-3); HEMATOCRIT 32.8 % (36.0-47.0); HEMOGLOBIN 10.7 g/dL (12.0-15.5); LYMPH # 0.5 x10^3/uL (1.0-4.8); LYMPH % 6 % (24-48); MEAN CORPUSCULAR HEMOGLOBIN 24 pg (25-35); MEAN CORPUSCULAR HGB CONC 33 g/dL (31-37); MEAN CORPUSCULAR VOLUME 74 fL (79-100); MONO # 0.7 x10^3/uL (0.0-1.1); MONO % 8 % (0-9); NEUT # 7.5 x10^3/uL (1.8-7.7); NEUT % 85 % (31-73); PLATELET COUNT 203 x10^3/uL (140-400); RED BLOOD COUNT 4.42 x10^6/uL (3.50-5.40); RED CELL DISTRIBUTION WIDTH 18.3 % (11.5-14.5); WHITE BLOOD COUNT 8.7 x10^3/uL (4.0-11.0)
[2019-06-26 21:33] LABS: CALCIUM 9.1 mg/dL (8.5-10.1); CREATININE 1.3 mg/dL (0.6-1.0); GFR 41.8; POTASSIUM 4.2 mmol/L (3.5-5.1)
[2019-06-26 21:39] LABS: ALBUMIN/GLOBULIN RATIO 0.9 (1.0-1.7); TOTAL BILIRUBIN 0.6 mg/dL (0.2-1.0); TOTAL PROTEIN 6.5 g/dL (6.4-8.2)
[2019-06-26 21:54] LABS: % BANDS 3 % (0-9); % BASOS 1 % (0-3); % EOS 1 % (0-5); % LYMPHS 9 % (24-48); % MONOS 10 % (0-10); % SEGS 76 % (35-66); PLT ESTIMATE ADEQUATE (ADEQUATE); TOXIC GRANULATION SLIGHT; TOXIC VACUOLATION SLIGHT
[2019-06-26 21:59] LABS: INFLUENZA A PATIENT NEGATIVE (NEGATIVE); INFLUENZA B PATIENT NEGATIVE (NEGATIVE)
[2019-06-26 22:28] LABS: BASE EXCESS ABG -3 mmol/L (-3-3); HCO3 ABG 22 mmol/L (21-28); PCO2 ABG 40 mmHg (35-46); PO2 ABG 77 mmHg (65-108); SAT O2 ABG 94 % (92-99)
[2019-06-26 22:29] LABS: FIO2 ABG 28
--- NOTE | 2019-06-26 22:31 | PHYS DOC ---
Past Medical History Past Medical History: Anemia, Anxiety, COPD, Depression, Diabetes-Type II, High Cholesterol, Hypertension, Other Additional Past Medical Histor: Diabetic Neuropathy Past Surgical History: Appendectomy, Cholecystectomy, Hysterectomy, Other Additional Past Surgical Histo: Right Kidney Removed Alcohol Use: None Drug Use: Cocaine Adult General Chief Complaint Chief Complaint: SHORTNESS OF BREATH HPI HPI Patient is a 59 year old female with history of COPD who presents with increased shortness of breath over the past 24 hours. Patient reports dyspnea with exertion and increased her last weakness and fatigue. Reports nonproductive cough which is new increased leg swelling. Denies fever chills, nausea vomiting or sweats. No chest pain or chest tightness.[] Review of Systems Review of Systems Review symptoms as per history of present illness. All other review symptoms are negative. All other systems were reviewed and found to be within normal limits, except as documented in this note. Allergies Allergies Allergies Coded Allergies Type Severity Reaction Last Updated Verified sulfamethoxazole Allergy Intermediate Hives 12/25/17 Yes trimethoprim Allergy Intermediate Hives 12/25/17 Yes Physical Exam Physical Exam Constitutional: Well developed, well nourished, no acute distress, non-toxic appearance. [] HENT: Normocephalic, atraumatic, bilateral external ears normal, oropharynx moist, no oral exudates, nose normal. [] Eyes: PERRLA, EOMI, conjunctiva normal, no discharge. [] Neck: Normal range of motion, no tenderness, supple, no stridor. [] Cardiovascular:Heart rate regular rhythm, no murmur [] Lungs & Thorax: Respirations nonlabored, coarse diminished breath sounds bilater ally.[] Abdomen: Bowel sounds normal, soft, no tenderness.[] Skin: Warm, dry, no erythema, no rash. [] Back: No tenderness, no CVA tenderness. [] Extremities: No tenderness, no cyanosis, no clubbing, ROM intact, no edema. [] Neurologic: Alert and oriented X 3, normal motor function, normal sensory function, no focal deficits noted. [] Psychologic: Affect normal, judgement normal, mood normal. [] Current Patient Data Vital Signs Vital Signs Date Time Temp Pulse Resp B/P (MAP) Pulse Ox O2 Delivery O2 Flow Rate FiO2 06/26/19 21:22 100 120/65 (83) 95 Nasal Cannula 2.0 06/26/19 20:20 98.8 24 98.8 Lab Values Laboratory Tests Test 06/26/19 20:25 06/26/19 20:30 Influenza Type A Antigen Negative (NEGATIVE) Influenza Type B Antigen Negative (NEGATIVE) White Blood Count 8.7 x10^3/uL (4.0-11.0) Red Blood Count 4.42 x10^6/uL (3.50-5.40) Hemoglobin 10.7 g/dL (12.0-15.5) L Hematocrit 32.8 % (36.0-47.0) L Mean Corpuscular Volume 74 fL (79-100) L Mean Corpuscular Hemoglobin 24 pg (25-35) L Mean Corpuscular Hemoglobin Concent 33 g/dL (31-37) Red Cell Distribution Width 18.3 % (11.5-14.5) H Platelet Count 203 x10^3/uL (140-400) Neutrophils (%) (Auto) 85 % (31-73) H Lymphocytes (%) (Auto) 6 % (24-48) L Monocytes (%) (Auto) 8 % (0-9) Eosinophils (%) (Auto) 0 % (0-3) Basophils (%) (Auto) 0 % (0-3) Neutrophils # (Auto) 7.5 x10^3/uL (1.8-7.7) Lymphocytes # (Auto) 0.5 x10^3/uL (1.0-4.8) L Monocytes # (Auto) 0.7 x10^3/uL (0.0-1.1) Eosinophils # (Auto) 0.0 x10^3/uL (0.0-0.7) Basophils # (Auto) 0.0 x10^3/uL (0.0-0.2) Segmented Neutrophils % 76 % (35-66) H Band Neutrophils % 3 % (0-9) Lymphocytes % 9 % (24-48) L Monocytes % 10 % (0-10) Eosinophils % 1 % (0-5) Basophils % 1 % (0-3) Toxic Granulation Slight Toxic Vacuolation Slight Platelet Estimate Adequate (ADEQUATE) Sodium Level 140 mmol/L (136-145) Potassium Level 4.2 mmol/L (3.5-5.1) Chloride Level 102 mmol/L (98-107) Carbon Dioxide Level 25 mmol/L (21-32) Anion Gap 13 (6-14) Blood Urea Nitrogen 23 mg/dL (7-20) H Creatinine 1.3 mg/dL (0.6-1.0) H Estimated GFR (Cockcroft-Gault) 41.8 BUN/Creatinine Ratio 18 (6-20) Glucose Level 85 mg/dL (70-99) Calcium Level 9.1 mg/dL (8.5-10.1) Total Bilirubin 0.6 mg/dL (0.2-1.0) Aspartate Amino Transferase (AST) 9 U/L (15-37) L Alanine Aminotransferase (ALT) 13 U/L (14-59) L Alkaline Phosphatase 72 U/L (46-116) Troponin I Quantitative < 0.017 ng/mL (0.000-0.055) DC-Ugy-C-Type Natriuretic Peptide 830 pg/mL (0-124) H Total Protein 6.5 g/dL (6.4-8.2) Albumin 3.0 g/dL (3.4-5.0) L Albumin/Globulin Ratio 0.9 (1.0-1.7) L Laboratory Tests 06/26/19 20:30 Laboratory Tests 06/26/19 20:30 EKG EKG [EKG: reviewed] Radiology/Procedures Radiology/Procedures CXR: reviewed[] Course & Med Decision Making Course & Med Decision Making Pertinent Labs and Imaging studies reviewed. (See chart for details) [Steroids, tx treatment given the ED with persistent shortness breath. Will admit to the hospitalist service..] Dragon Disclaimer Dragon Disclaimer This electronic medical record was generated, in whole or in part, using a voice recognition dictation system. Departure Departure Impression: Primary Impression: COPD exacerbation Disposition: ADMITTED INPATIENT Condition: IMPROVED Referrals: KURT ROSEN (PCP) JANELL JACOBS DO Jun 26, 2019 22:31
[2019-06-26] MEDS ORDERED: IPRATRPIUM/ALBUTEROL 0.5/2.5MG 3 ML NEBU. NEB ONE (22:45)
[2019-06-26 22:55] VITALS: BP 113/68
[2019-06-26] MEDS ORDERED: ALBU2.5V8 INH (23:26)
[2019-06-26] MEDS ORDERED: ONDANSETRON PF 4 MG/2 ML VIAL. IV PRN (23:30)
[2019-06-27] MEDS: HYDROcodone/APAP 10/325 1 TAB TABLET PO PRN ×3 (00:54→21:22)
[2019-06-27] MEDS: TEMAZEPAM 15 MG CAPSULE PO SCH ×2 (00:54→21:22)
[2019-06-27 03:05] VITALS: BP 103/67
--- NOTE | 2019-06-27 04:46 | EKG ---
[facility] [address] [place] [address] Test Date: 2019-06-26 Test Time: 20:30:35 Pat Name: HODA FRANCIS Department: Room: Gender: F Network Specialist: : [id number] Requested By: JANELL JACOBS Order Number: [id number] Reading MD: Measurements Intervals [place] Rate: 100 P: 40 WY: 142 QRS: 47 QRSD: 82 T: 49 QT: 344 QTc: 447 Interpretive Statements SINUS RHYTHM NORMAL ECG RI6.01 No previous ECG available for comparison
[2019-06-27 07:00] VITALS: BP 118/69
[2019-06-27] MEDS: ALPRAZolam 0.5 MG TABLET PO PRN (07:01)
--- NOTE | 2019-06-27 08:05 | RAD ---
CHEST AP ONLY Clinical Indication: Shortness of breath Comparison: 06/03/2019 CT chest without contrast, 05/12/2019 Portable Chest X-ray Exam. Findings: Portable upright frontal view of chest was obtained. Wires are noted overlying the cervical spine. The cardiomediastinal silhouette is normal. Right suprahilar opacity again seen without change from 06/03/2019 CT chest without contrast. Interstitial infiltrate at the lateral right upper lung field at the level of the right suprahilar opacity. There is no pneumothorax. No pleural effusion is appreciated. No acute bone abnormality. IMPRESSION: Right suprahilar opacity is similar pulmonary correlation CT chest without contrast 05/13/2019. Mild new interstitial infiltrate involving the lateral right upper lung field in the interval. Electronically signed by: Dale Toscano MD (06/27/2019 8:02 AM) [facility]
[2019-06-27] MEDS: BUDESONIDE 0.5 MG/2 ML NEBU. NEB SCH ×2 (08:09→20:02)
[2019-06-27] MEDS: IPRATRPIUM/ALBUTEROL 0.5/2.5MG 3 ML NEBU. NEB SCH ×4 (08:09→20:01)
[2019-06-27] MEDS ORDERED: FUROSEMIDE 20 MG/2 ML VIAL. IVP SCH (09:00)
--- NOTE | 2019-06-27 09:02 | PDOC2 ---
CARDIAC CONSULT DATE OF CONSULT Date of Consult DATE: 06/27/19 TIME: 08:54 REASON FOR CONSULT Reason for Consult: CHF REFERRING PHYSICIAN Referring Physician: Dr. Terry SOURCE Source: Chart review, Patient HISTORY OF PRESENT ILLNESS HISTORY OF PRESENT ILLNESS This is a 59 yo female who presented secondary to shortness of breath. Patient reports shortness of breath began yesterday. Progressed throughout the day. Perry wheeze. Has had cough productive of clear sputum. No chest pain, dizziness, diaphoresis, or nausea/vomiting. Did feel like she has some mild fluid retention in here belly for the last couple of days. No recent change in diet. Is feels much better today. PAST MEDICAL HISTORY Cardiovascular: CHF, HTN, Hyperlipidemia Pulmonary: COPD CENTRAL NERVOUS SYSTEM: Periperal neuropathy Heme/Onc: Anemia NOS, Cancer (lung, kidney ) Psych: Anxiety, Depression Endocrine: Diabetes PAST SURGICAL HISTORY Past Surgical History: Appendectomy, Cholecystectomy, Hysterectomy FAMILY HISTORY Family History: Diabetes SOCIAL HISTORY Smoke: Quit (5 years ago. Now vapes ) ALCOHOL: none Drugs: None Lives: Friends CURRENT MEDICATIONS CURRENT MEDICATIONS Current Medications Medications (Trade) Dose Ordered Sig/Angel Route PRN Reason Start Time Stop Time Status Last Admin Dose Admin Albuterol/ Ipratropium (Duoneb) 3 ml 1X ONCE NEB 06/26/19 22:45 06/26/19 22:46 DC 06/26/19 22:38 Albuterol/ Ipratropium (Duoneb) 3 ml RTQID NEB 06/27/19 08:00 06/27/19 08:09 Acetaminophen/ Hydrocodone Bitart (Lortab 10/325) 1 tab PRN Q6HRS PRN PO PAIN 06/27/19 00:45 06/27/19 07:01 Temazepam (Restoril) 15 mg HS PO 06/27/19 01:00 06/27/19 00:54 Alprazolam (Xanax) 0.5 mg PRN DAILY PRN PO ANXIETY 06/27/19 06:45 06/27/19 07:01 Budesonide (Pulmicort) 0.5 mg RTBID NEB 06/27/19 08:00 06/27/19 08:09 ALLERGIES ALLERGIES: Coded Allergies: sulfamethoxazole (Verified Allergy, Intermediate, Hives , 12/25/17) trimethoprim (Verified Allergy, Intermediate, Hives , 12/25/17) ROS Review of System 14 point ROS conducted with pertinent positives noted above in hPI PHYSICAL EXAM General: Alert, Oriented X3, Cooperative, No acute distress HEENT: Atraumatic, Mucous membr. moist/pink Lungs: Other (fine expiratroy wheezing ) Heart: Regular rate, Normal S1, Normal S2 Abdomen: Soft, No tenderness Extremities: No edema, Normal pulses Skin: No significant lesion Neuro: Normal speech, Sensation intact Psych/Mental Status: Other (drowsy ) MUSCULOSKELETAL: Osteoarthritic changes both hands VITALS/I&O VITALS/I&O: Vital Signs Date Time Temp Pulse Resp B/P (MAP) Pulse Ox O2 Delivery O2 Flow Rate FiO2 06/27/19 08:11 96 Nasal Cannula 2.0 06/27/19 07:00 98.3 93 16 118/69 (85) 98.3 I & O 06/26/19 06/26/19 06/27/19 15:00 23:00 07:00 Intake Total 440 ml Balance 440 ml LABS Lab: Laboratory Tests Test 06/26/19 20:25 06/26/19 20:30 06/26/19 22:25 06/27/19 00:00 Influenza Type A Antigen Negative (NEGATIVE) Influenza Type B Antigen Negative (NEGATIVE) White Blood Count 8.7 x10^3/uL (4.0-11.0) Red Blood Count 4.42 x10^6/uL (3.50-5.40) Hemoglobin 10.7 g/dL (12.0-15.5) L Hematocrit 32.8 % (36.0-47.0) L Mean Corpuscular Volume 74 fL (79-100) L Mean Corpuscular Hemoglobin 24 pg (25-35) L Mean Corpuscular Hemoglobin Concent 33 g/dL (31-37) Red Cell Distribution Width 18.3 % (11.5-14.5) H Platelet Count 203 x10^3/uL (140-400) Neutrophils (%) (Auto) 85 % (31-73) H Lymphocytes (%) (Auto) 6 % (24-48) L Monocytes (%) (Auto) 8 % (0-9) Eosinophils (%) (Auto) 0 % (0-3) Basophils (%) (Auto) 0 % (0-3) Neutrophils # (Auto) 7.5 x10^3/uL (1.8-7.7) Lymphocytes # (Auto) 0.5 x10^3/uL (1.0-4.8) L Monocytes # (Auto) 0.7 x10^3/uL (0.0-1.1) Eosinophils # (Auto) 0.0 x10^3/uL (0.0-0.7) Basophils # (Auto) 0.0 x10^3/uL (0.0-0.2) Segmented Neutrophils % 76 % (35-66) H Band Neutrophils % 3 % (0-9) Lymphocytes % 9 % (24-48) L Monocytes % 10 % (0-10) Eosinophils % 1 % (0-5) Basophils % 1 % (0-3) Toxic Granulation Slight Toxic Vacuolation Slight Platelet Estimate Adequate (ADEQUATE) Sodium Level 140 mmol/L (136-145) Potassium Level 4.2 mmol/L (3.5-5.1) Chloride Level 102 mmol/L (98-107) Carbon Dioxide Level 25 mmol/L (21-32) Anion Gap 13 (6-14) Blood Urea Nitrogen 23 mg/dL (7-20) H Creatinine 1.3 mg/dL (0.6-1.0) H Estimated GFR (Cockcroft-Gault) 41.8 BUN/Creatinine Ratio 18 (6-20) Glucose Level 85 mg/dL (70-99) Calcium Level 9.1 mg/dL (8.5-10.1) Total Bilirubin 0.6 mg/dL (0.2-1.0) Aspartate Amino Transferase (AST) 9 U/L (15-37) L Alanine Aminotransferase (ALT) 13 U/L (14-59) L Alkaline Phosphatase 72 U/L (46-116) Troponin I Quantitative < 0.017 ng/mL (0.000-0.055) < 0.017 ng/mL (0.000-0.055) BD-Kwq-L-Type Natriuretic Peptide 830 pg/mL (0-124) H Total Protein 6.5 g/dL (6.4-8.2) Albumin 3.0 g/dL (3.4-5.0) L Albumin/Globulin Ratio 0.9 (1.0-1.7) L O2 Saturation 94 % (92-99) Arterial Blood pH 7.36 (7.35-7.45) Arterial Blood pCO2 at Patient Temp 40 mmHg (35-46) Arterial Blood pO2 at Patient Temp 77 mmHg (65-108) Arterial Blood HCO3 22 mmol/L (21-28) Arterial Blood Base Excess -3 mmol/L (-3-3) FiO2 28 Test 06/27/19 06:15 06/27/19 07:12 06/27/19 07:38 Troponin I Quantitative < 0.017 ng/mL (0.000-0.055) Glucose (Fingerstick) 62 mg/dL (70-99) L 92 mg/dL (70-99) Laboratory Tests 06/26/19 20:30 Laboratory Tests 06/26/19 20:30 ECHOCARDIOGRAM ECHOCARDIOGRAM <Conclusion> The left ventricular systolic function is normal. The Ejection Fraction is 60-65%. There is normal LV segmental wall motion. Transmitral Doppler flow pattern is Grade I-abnormal relaxation pattern. Trace mitral regurgitation. Trace tricuspid regurgitation. There is no evidence of significant pericardial effusion. Injection of bubbles documented no interatrial shunt. DATE: 05/15/191417 ASSESSMENT/PLAN ASSESSMENT/PLAN 1. Acute on chronic respiratory failure with AE COPD and mild CHF. Mostly due to COPD exacerbation 2. Mild acute on chronic diastolic CHF; Recent echo with preserved LV systolic function as above. 3. Hypertension; controlled 4. Hyperlipidemia; statin 5. Diabetes, II. 6. XIAO Recommendations Lasix 20mg x1 now. Continue statin therapy Lung optimization Consider outpatient ischemic evaluation based upon risk factors. Supportive care STIVEN BOYCE APRN Jun 27, 2019 09:02
[2019-06-27] MEDS ORDERED: FUROSEMIDE 20 MG/2 ML VIAL. IVP ONE (09:15)
[2019-06-27] MEDS: buPROPion XL 150 MG TAB.ER.24H. PO SCH (09:24)
[2019-06-27] MEDS: DULoxetine HCL 30 MG CAPSULE.DR PO SCH (09:24)
[2019-06-27] MEDS: PREGABALIN 50 MG CAPSULE PO SCH ×3 (09:24→21:27)
[2019-06-27 11:00] VITALS: BP 104/69
--- NOTE | 2019-06-27 13:16 | NUR ---
Wound Care: Patient seen per wound care consult. See wound assessment. Patient has a DFU to the left 2nd toe. Wound cleansed and assessed. Recommendations for Iodoflex to wound bed and cover with bandaid. Dressing applied. No other wounds noted upon complete head to toe assessment. Dressing change instructions left in room as well as extra Iodoflex for next dressing changes. Bed lowered and call light in reach. Will follow patient regarding wound care.
--- NOTE | 2019-06-27 13:27 | PDOC1 ---
History and Physical Date of Admission: Date of Admission DATE: 06/27/19 TIME: 13:25 Chief Complaint: Problems: (1) Amputation of fifth toe, left, traumatic (2) CKD (chronic kidney disease) (3) AMS (altered mental status) (4) Pneumonia (5) Encephalopathy (6) COPD exacerbation Chief Complain: Shortness of breath and cough History of Present Illness: HPI: Patient is a 59 year old female with history of COPD who presents with increased shortness of breath over the past 24 hours. Patient reports dyspnea with exertion and increased her last weakness and fatigue. Reports nonproductive cough which is new increased leg swelling. Denies fever chills, nausea vomiting or sweats. No chest pain or chest tightness.[] Past Medical/Surgical History: PMH/PSH: Past Medical History: Anemia, Anxiety, COPD, Depression, Diabetes-Type II, High Cholesterol, Hypertension, Other Additional Past Medical Histor: Diabetic Neuropathy Past Surgical History: Appendectomy, Cholecystectomy, Hysterectomy, Other Additional Past Surgical Histo: Right Kidney Removed Alcohol Use: None Drug Use: Cocaine Allergies: Allergies: Coded Allergies: sulfamethoxazole (Verified Allergy, Intermediate, Hives , 12/25/17) trimethoprim (Verified Allergy, Intermediate, Hives , 12/25/17) Family History: Family History: COPD Social History: Social Hisoty: She quit smoking a week ago Drugs Current Medications: Current Medications Current Medications Albuterol/ Ipratropium (Duoneb) 3 ml 1X ONCE NEB Last administered on 06/26/19at 22:38; Start 06/26/19 at 22:45; Stop 06/26/19 at 22:46; Status DC Ondansetron HCl (Zofran) 4 mg PRN Q8HRS PRN IV NAUSEA/VOMITING; Start 06/26/19 at 23:30; Stop 06/27/19 at 23:29 Albuterol/ Ipratropium (Duoneb) 3 ml RTQID NEB Last administered on 06/27/19at 12:35; Start 06/27/19 at 08:00 Furosemide (Lasix) 20 mg BID92 IVP ; Start 06/27/19 at 09:00; Stop 06/27/19 at 09:14; Status DC Acetaminophen/ Hydrocodone Bitart (Lortab 10/325) 1 tab PRN Q6HRS PRN PO PAIN Last administered on 06/27/19 07:01; Start 06/27/19 at 00:45 Temazepam (Restoril) 15 mg HS PO Last administered on 06/27/19 00:54; Start 06/27/19 at 01:00 Alprazolam (Xanax) 0.5 mg PRN DAILY PRN PO ANXIETY Last administered on 07:01; Start 06/27/19 at 06:45 Bupropion HCl (Wellbutrin Xl) 150 mg DAILY PO Last administered on 06/27/19 09:24; Start 06/27/19 at 09:00 Atorvastatin Calcium (Lipitor) 80 mg HS PO ; Start 06/27/19 at 21:00 Duloxetine HCl (Cymbalta) 120 mg DAILY PO Last administered on 06/27/19 09:24; Start 06/27/19 at 09:00 Budesonide (Pulmicort) 0.5 mg RTBID NEB Last administered on 06/27/19 08:09; Start 06/27/19 at 08:00 Pregabalin (Lyrica) 200 mg TID PO Last administered on 06/27/19 09:24; Start 06/27/19 at 09:00 Furosemide (Lasix) 20 mg 1X ONCE IVP Last administered on 06/27/19 09:24; Start 06/27/19 at 09:15; Stop 06/27/19 at 09:16; Status DC Active Scripts Active [place] 10-325 Tablet (Acetaminophen/Hydrocodone Bitart) 1 Each Tablet 1 Tab PO PRN Q6HRS PRN 30 Days Xanax (Alprazolam) 0.5 Mg Tablet 1 Tab PO DAILY PRN Bupropion Xl (Bupropion Hcl) 150 Mg Tab.er.24h 150 Mg PO DAILY 30 Days Reported Proair Hfa Inhaler (Albuterol Sulfate) 8.5 Gm Hfa.aer.ad 2 Puff INH PRN Q4HRS PRN Advair 250-50 Diskus (Fluticasone/Salmeterol) 1 Each Disk.w.dev 1 Puff IH BID Atorvastatin Calcium 80 Mg Tablet 80 Mg PO HS Lyrica (Pregabalin) 200 Mg Capsule 1 Cap PO TID Belsomra (Suvorexant) 20 Mg Tablet 20 Mg PO HS Cymbalta (Duloxetine Hcl) 60 Mg Capsule. 2 Cap PO DAILY ROS: Review of Systems Review of System REVIEW OF SYSTEMS: GENERAL: Denies weakness SKIN: No bruising, hair changes or rashes. EYES: No blurred, double or loss of vision. NOSE AND THROAT: No history of nosebleeds, hoarseness or sore throat. HEART: No history of palpitations, chest pain or shortness of breath on exertion. LUNGS: Complains of shortness of breath GASTROINTESTINAL: Denies changes in appetite, nausea, vomiting, diarrhea or constipation. GENITOURINARY: No history of frequency, urgency, hesitancy or nocturia. NEUROLOGIC: Denies history of numbness, tingling, tremor or weakness. PSYCHIATRIC: No history of panic, anxiety or depression. ENDOCRINE: No history of heat or cold intolerance, polyuria or polydipsia. EXTREMITIES: Denies muscle weakness, joint pain, pain on walking or stiffness. Physical Exam: Vital Signs: Vital Signs Date Time Temp Pulse Resp B/P (MAP) Pulse Ox O2 Delivery O2 Flow Rate FiO2 06/27/19 12:37 Nasal Cannula 2.0 06/27/19 11:00 98.2 93 12 104/69 (81) 97 98.2 Physcial Exam: GEN: No apparent distress. Alert and oriented HEENT: Normal cephalic, atraumatic, external auditory canals are patent EYES: Extraocular muscles are intact, pupil are equally round and reactive to light and accommodation MUSCULOSKELETAL: Well developed , well nourished, good range of motion ENDOCRINE: Ny thyromegaly was palpated LYMPHATICS: No cervical chain or axillary nodes were noted HEMATOPOIETIC: No bruising NECK: Supple, no JVD, no thyromegaly was noted LUNGS: Decreased breath sounds HEART: RRR, S!, S2 present. Peripheral pulses intact, no obvious murmurs noted ABDOMEN: Soft, nontender. Positive bowel sounds, no organomegaly, normal bowel sounds EXTREMITIES: Without clubbing, cyanosis, or edema. Pedal pulses intact. Negative Homans sign NEUROLOGIC: Normal speech and tone. A&O x 3, moves all extremities, no obvious focal deficits PSYCHIATRIC: Normal affect, normal mood. Stable SKIN: No ulcerations or rashes, good skin turgor, no jaundice VASCULAR: Good capillary refill, neurovascular bundle appears to be intact Labs: Labs: Laboratory Tests Test 06/26/19 20:25 06/26/19 20:30 06/26/19 22:25 06/27/19 00:00 Influenza Type A Antigen Negative (NEGATIVE) Influenza Type B Antigen Negative (NEGATIVE) White Blood Count 8.7 x10^3/uL (4.0-11.0) Red Blood Count 4.42 x10^6/uL (3.50-5.40) Hemoglobin 10.7 g/dL (12.0-15.5) Hematocrit 32.8 % (36.0-47.0) Mean Corpuscular Volume 74 fL (79-100) Mean Corpuscular Hemoglobin 24 pg (25-35) Mean Corpuscular Hemoglobin Concent 33 g/dL (31-37) Red Cell Distribution Width 18.3 % (11.5-14.5) Platelet Count 203 x10^3/uL (140-400) Neutrophils (%) (Auto) 85 % (31-73) Lymphocytes (%) (Auto) 6 % (24-48) Monocytes (%) (Auto) 8 % (0-9) Eosinophils (%) (Auto) 0 % (0-3) Basophils (%) (Auto) 0 % (0-3) Neutrophils # (Auto) 7.5 x10^3/uL (1.8-7.7) Lymphocytes # (Auto) 0.5 x10^3/uL (1.0-4.8) Monocytes # (Auto) 0.7 x10^3/uL (0.0-1.1) Eosinophils # (Auto) 0.0 x10^3/uL (0.0-0.7) Basophils # (Auto) 0.0 x10^3/uL (0.0-0.2) Segmented Neutrophils % 76 % (35-66) Band Neutrophils % 3 % (0-9) Lymphocytes % 9 % (24-48) Monocytes % 10 % (0-10) Eosinophils % 1 % (0-5) Basophils % 1 % (0-3) Toxic Granulation Slight Toxic Vacuolation Slight Platelet Estimate Adequate (ADEQUATE) Sodium Level 140 mmol/L (136-145) Potassium Level 4.2 mmol/L (3.5-5.1) Chloride Level 102 mmol/L (98-107) Carbon Dioxide Level 25 mmol/L (21-32) Anion Gap 13 (6-14) Blood Urea Nitrogen 23 mg/dL (7-20) Creatinine 1.3 mg/dL (0.6-1.0) Estimated GFR (Cockcroft-Gault) 41.8 BUN/Creatinine Ratio 18 (6-20) Glucose Level 85 mg/dL (70-99) Calcium Level 9.1 mg/dL (8.5-10.1) Total Bilirubin 0.6 mg/dL (0.2-1.0) Aspartate Amino Transf (AST/SGOT) 9 U/L (15-37) Alanine Aminotransferase (ALT/SGPT) 13 U/L (14-59) Alkaline Phosphatase 72 U/L (46-116) Troponin I Quantitative < 0.017 ng/mL (0.000-0.055) < 0.017 ng/mL (0.000-0.055) QC-Ajx-V-Type Natriuretic Peptide 830 pg/mL (0-124) Total Protein 6.5 g/dL (6.4-8.2) Albumin 3.0 g/dL (3.4-5.0) Albumin/Globulin Ratio 0.9 (1.0-1.7) O2 Saturation 94 % (92-99) Arterial Blood pH 7.36 (7.35-7.45) Arterial Blood pCO2 at Patient Temp 40 mmHg (35-46) Arterial Blood pO2 at Patient Temp 77 mmHg (65-108) Arterial Blood HCO3 22 mmol/L (21-28) Arterial Blood Base Excess -3 mmol/L (-3-3) FiO2 28 Test 06/27/19 06:15 06/27/19 07:12 06/27/19 07:38 06/27/19 11:27 Troponin I Quantitative < 0.017 ng/mL (0.000-0.055) Glucose (Fingerstick) 62 mg/dL (70-99) 92 mg/dL (70-99) 108 mg/dL (70-99) Test 06/27/19 11:45 Troponin I Quantitative < 0.017 ng/mL (0.000-0.055) Laboratory Tests Test 06/26/19 20:25 06/26/19 20:30 06/26/19 22:25 06/27/19 00:00 Influenza Type A Antigen Negative (NEGATIVE) Influenza Type B Antigen Negative (NEGATIVE) White Blood Count 8.7 x10^3/uL (4.0-11.0) Red Blood Count 4.42 x10^6/uL (3.50-5.40) Hemoglobin 10.7 g/dL (12.0-15.5) Hematocrit 32.8 % (36.0-47.0) Mean Corpuscular Volume 74 fL (79-100) Mean Corpuscular Hemoglobin 24 pg (25-35) Mean Corpuscular Hemoglobin Concent 33 g/dL (31-37) Red Cell Distribution Width 18.3 % (11.5-14.5) Platelet Count 203 x10^3/uL (140-400) Neutrophils (%) (Auto) 85 % (31-73) Lymphocytes (%) (Auto) 6 % (24-48) Monocytes (%) (Auto) 8 % (0-9) Eosinophils (%) (Auto) 0 % (0-3) Basophils (%) (Auto) 0 % (0-3) Neutrophils # (Auto) 7.5 x10^3/uL (1.8-7.7) Lymphocytes # (Auto) 0.5 x10^3/uL (1.0-4.8) Monocytes # (Auto) 0.7 x10^3/uL (0.0-1.1) Eosinophils # (Auto) 0.0 x10^3/uL (0.0-0.7) Basophils # (Auto) 0.0 x10^3/uL (0.0-0.2) Segmented Neutrophils % 76 % (35-66) Band Neutrophils % 3 % (0-9) Lymphocytes % 9 % (24-48) Monocytes % 10 % (0-10) Eosinophils % 1 % (0-5) Basophils % 1 % (0-3) Toxic Granulation Slight Toxic Vacuolation Slight Platelet Estimate Adequate (ADEQUATE) Sodium Level 140 mmol/L (136-145) Potassium Level 4.2 mmol/L (3.5-5.1) Chloride Level 102 mmol/L (98-107) Carbon Dioxide Level 25 mmol/L (21-32) Anion Gap 13 (6-14) Blood Urea Nitrogen 23 mg/dL (7-20) Creatinine 1.3 mg/dL (0.6-1.0) Estimated GFR (Cockcroft-Gault) 41.8 BUN/Creatinine Ratio 18 (6-20) Glucose Level 85 mg/dL (70-99) Calcium Level 9.1 mg/dL (8.5-10.1) Total Bilirubin 0.6 mg/dL (0.2-1.0) Aspartate Amino Transf (AST/SGOT) 9 U/L (15-37) Alanine Aminotransferase (ALT/SGPT) 13 U/L (14-59) Alkaline Phosphatase 72 U/L (46-116) Troponin I Quantitative < 0.017 ng/mL (0.000-0.055) < 0.017 ng/mL (0.000-0.055) BS-Rxu-Y-Type Natriuretic Peptide 830 pg/mL (0-124) Total Protein 6.5 g/dL (6.4-8.2) Albumin 3.0 g/dL (3.4-5.0) Albumin/Globulin Ratio 0.9 (1.0-1.7) O2 Saturation 94 % (92-99) Arterial Blood pH 7.36 (7.35-7.45) Arterial Blood pCO2 at Patient Temp 40 mmHg (35-46) Arterial Blood pO2 at Patient Temp 77 mmHg (65-108) Arterial Blood HCO3 22 mmol/L (21-28) Arterial Blood Base Excess -3 mmol/L (-3-3) FiO2 28 Test 06/27/19 06:15 06/27/19 07:12 06/27/19 07:38 06/27/19 11:27 Troponin I Quantitative < 0.017 ng/mL (0.000-0.055) Glucose (Fingerstick) 62 mg/dL (70-99) 92 mg/dL (70-99) 108 mg/dL (70-99) Test 06/27/19 11:45 Troponin I Quantitative < 0.017 ng/mL (0.000-0.055) Assessment/Plan Assessment/Plan COPD with restrictive failure Plan IV steroids breathing treatments oxygen and antibiotics and consult pulmonary DVT prophylaxis Full code Home meds IV fluids Trend labs Prognosis guarded ANN MARIE HERRON III DO Jun 27, 2019 13:27
[2019-06-27 15:00] VITALS: BP 119/77
[2019-06-27 19:46] VITALS: BP 111/68
[2019-06-27] MEDS: ATORVASTATIN CALCIUM 40 MG TABLET. PO SCH (21:23)
[2019-06-27 23:28] VITALS: BP 121/74
[2019-06-28 03:44] VITALS: BP 109/76
[2019-06-28] MEDS: HYDROcodone/APAP 10/325 1 TAB TABLET PO PRN ×3 (04:05→22:18)
[2019-06-28 05:37] LABS: CALCIUM 9.2 mg/dL (8.5-10.1); CREATININE 1.3 mg/dL (0.6-1.0); GFR 41.8
[2019-06-28 07:00] VITALS: BP 102/65
[2019-06-28] MEDS: IPRATRPIUM/ALBUTEROL 0.5/2.5MG 3 ML NEBU. NEB SCH ×4 (08:07→19:17)
[2019-06-28] MEDS: BUDESONIDE 0.5 MG/2 ML NEBU. NEB SCH ×2 (08:07→19:17)
[2019-06-28] MEDS: buPROPion XL 150 MG TAB.ER.24H. PO SCH (09:24)
[2019-06-28] MEDS: DULoxetine HCL 30 MG CAPSULE.DR PO SCH (09:24)
[2019-06-28] MEDS: PREGABALIN 50 MG CAPSULE PO SCH ×3 (09:24→22:18)
[2019-06-28] MEDS: ALPRAZolam 0.5 MG TABLET PO PRN (09:32)
[2019-06-28 11:00] VITALS: BP 116/71
[2019-06-28] MEDS ORDERED: AZITHROMYCIN 250 MG TABLET. PO ONE (11:00)
--- NOTE | 2019-06-28 11:44 | PDOC ---
[facility] [facility] PROGRESS NOTE Chief Complaint Chief Complaint COPD Exacerbation Anemia Anxiety Depression Diabetes-Type II High Cholesterol Hypertension Diabetic Neuropathy History of Present Illness History of Present Illness 06/28/19 Pt seen and examined Pt sitting up in bed Pt c/o pain with cough as well as increased sputum production JAY RN Reviewed pt's chart Vitals/I&O Vitals/I&O: Vital Signs Date Time Temp Pulse Resp B/P (MAP) Pulse Ox O2 Delivery O2 Flow Rate FiO2 06/28/19 11:00 97.6 94 16 116/71 (86) 91 Nasal Cannula 2.0 97.6 I & O 06/27/19 06/27/19 06/28/19 15:00 23:00 07:00 Intake Total 500 ml 750 ml 150 ml Balance 500 ml 750 ml 150 ml Physical Exam General: Alert, Oriented X3, Cooperative, No acute distress Heart: Regular rate, Normal S1, Normal S2 Lungs: Wheezing Abdomen: Soft, No tenderness Extremities: No edema, Normal pulses Skin: No significant lesion Labs Labs: Laboratory Tests Test 06/27/19 11:45 06/27/19 16:21 06/27/19 20:36 06/28/19 04:05 Troponin I Quantitative < 0.017 ng/mL (0.000-0.055) Glucose (Fingerstick) 88 mg/dL (70-99) 132 mg/dL (70-99) Sodium Level 137 mmol/L (136-145) Potassium Level 4.0 mmol/L (3.5-5.1) Chloride Level 100 mmol/L (98-107) Carbon Dioxide Level 28 mmol/L (21-32) Anion Gap 9 (6-14) Blood Urea Nitrogen 24 mg/dL (7-20) Creatinine 1.3 mg/dL (0.6-1.0) Estimated GFR (Cockcroft-Gault) 41.8 Glucose Level 89 mg/dL (70-99) Calcium Level 9.2 mg/dL (8.5-10.1) Test 06/28/19 07:59 Glucose (Fingerstick) 87 mg/dL (70-99) Review of Systems Review of Systems: No c/o headaches C/o pain with cough and sputum production Assessment and Plan Assessmemt and Plan Assessment COPD Exacerbation Anemia Anxiety Depression Diabetes-Type II High Cholesterol Hypertension Diabetic Neuropathy Plan Called pharmacy and ordered a z-pack and medrol dose pack Consult Pulm Breathing treatments Steroids Supplemental O2 DVT Prophylaxis PT/OT Labs Home meds Full code Appreciate subspecialist input Comment Review of Relevant I have reviewed the following items avery (where applicable) has been applied. Medications: Current Medications Medications (Trade) Dose Ordered Sig/Angel Route PRN Reason Start Time Stop Time Status Last Admin Dose Admin Atorvastatin Calcium (Lipitor) 80 mg HS PO 06/27/19 21:00 06/27/19 21:23 ANN MARIE HERRON III DO Jun 28, 2019 11:44
[2019-06-28] MEDS: methylPREDNISolone 4 MG TABLET. PO SCH ×4 (12:28→22:18)
--- NOTE | 2019-06-28 14:58 | PDOC ---
PULMONARY PROGRESS NOTES Vitals Vital Signs Date Time Temp Pulse Resp B/P (MAP) Pulse Ox O2 Delivery O2 Flow Rate FiO2 06/28/19 12:04 98 Nasal Cannula 2.0 06/28/19 11:00 97.6 94 16 116/71 (86) 97.6 General: Alert, No acute distress HEENT: Other Lungs: Wheezing Cardiovascular: S1, S2 Abdomen: Soft, Non-tender Extremities: No Edema Labs Laboratory Tests Test 06/26/19 20:25 06/26/19 20:30 06/26/19 22:25 06/27/19 00:00 Influenza Type A Antigen Negative (NEGATIVE) Influenza Type B Antigen Negative (NEGATIVE) White Blood Count 8.7 x10^3/uL (4.0-11.0) Red Blood Count 4.42 x10^6/uL (3.50-5.40) Hemoglobin 10.7 g/dL (12.0-15.5) Hematocrit 32.8 % (36.0-47.0) Mean Corpuscular Volume 74 fL (79-100) Mean Corpuscular Hemoglobin 24 pg (25-35) Mean Corpuscular Hemoglobin Concent 33 g/dL (31-37) Red Cell Distribution Width 18.3 % (11.5-14.5) Platelet Count 203 x10^3/uL (140-400) Neutrophils (%) (Auto) 85 % (31-73) Lymphocytes (%) (Auto) 6 % (24-48) Monocytes (%) (Auto) 8 % (0-9) Eosinophils (%) (Auto) 0 % (0-3) Basophils (%) (Auto) 0 % (0-3) Neutrophils # (Auto) 7.5 x10^3/uL (1.8-7.7) Lymphocytes # (Auto) 0.5 x10^3/uL (1.0-4.8) Monocytes # (Auto) 0.7 x10^3/uL (0.0-1.1) Eosinophils # (Auto) 0.0 x10^3/uL (0.0-0.7) Basophils # (Auto) 0.0 x10^3/uL (0.0-0.2) Segmented Neutrophils % 76 % (35-66) Band Neutrophils % 3 % (0-9) Lymphocytes % 9 % (24-48) Monocytes % 10 % (0-10) Eosinophils % 1 % (0-5) Basophils % 1 % (0-3) Toxic Granulation Slight Toxic Vacuolation Slight Platelet Estimate Adequate (ADEQUATE) Sodium Level 140 mmol/L (136-145) Potassium Level 4.2 mmol/L (3.5-5.1) Chloride Level 102 mmol/L (98-107) Carbon Dioxide Level 25 mmol/L (21-32) Anion Gap 13 (6-14) Blood Urea Nitrogen 23 mg/dL (7-20) Creatinine 1.3 mg/dL (0.6-1.0) Estimated GFR (Cockcroft-Gault) 41.8 BUN/Creatinine Ratio 18 (6-20) Glucose Level 85 mg/dL (70-99) Calcium Level 9.1 mg/dL (8.5-10.1) Total Bilirubin 0.6 mg/dL (0.2-1.0) Aspartate Amino Transf (AST/SGOT) 9 U/L (15-37) Alanine Aminotransferase (ALT/SGPT) 13 U/L (14-59) Alkaline Phosphatase 72 U/L (46-116) Troponin I Quantitative < 0.017 ng/mL (0.000-0.055) < 0.017 ng/mL (0.000-0.055) FJ-Tvl-I-Type Natriuretic Peptide 830 pg/mL (0-124) Total Protein 6.5 g/dL (6.4-8.2) Albumin 3.0 g/dL (3.4-5.0) Albumin/Globulin Ratio 0.9 (1.0-1.7) O2 Saturation 94 % (92-99) Arterial Blood pH 7.36 (7.35-7.45) Arterial Blood pCO2 at Patient Temp 40 mmHg (35-46) Arterial Blood pO2 at Patient Temp 77 mmHg (65-108) Arterial Blood HCO3 22 mmol/L (21-28) Arterial Blood Base Excess -3 mmol/L (-3-3) FiO2 28 Test 06/27/19 06:15 06/27/19 07:12 06/27/19 07:38 06/27/19 11:27 Troponin I Quantitative < 0.017 ng/mL (0.000-0.055) Glucose (Fingerstick) 62 mg/dL (70-99) 92 mg/dL (70-99) 108 mg/dL (70-99) Test 06/27/19 11:45 06/27/19 16:21 06/27/19 20:36 06/28/19 04:05 Troponin I Quantitative < 0.017 ng/mL (0.000-0.055) Glucose (Fingerstick) 88 mg/dL (70-99) 132 mg/dL (70-99) Sodium Level 137 mmol/L (136-145) Potassium Level 4.0 mmol/L (3.5-5.1) Chloride Level 100 mmol/L (98-107) Carbon Dioxide Level 28 mmol/L (21-32) Anion Gap 9 (6-14) Blood Urea Nitrogen 24 mg/dL (7-20) Creatinine 1.3 mg/dL (0.6-1.0) Estimated GFR (Cockcroft-Gault) 41.8 Glucose Level 89 mg/dL (70-99) Calcium Level 9.2 mg/dL (8.5-10.1) Test 06/28/19 07:59 06/28/19 11:36 Glucose (Fingerstick) 87 mg/dL (70-99) 128 mg/dL (70-99) Laboratory Tests Test 06/27/19 16:21 06/27/19 20:36 06/28/19 04:05 06/28/19 07:59 Glucose (Fingerstick) 88 mg/dL (70-99) 132 mg/dL (70-99) 87 mg/dL (70-99) Sodium Level 137 mmol/L (136-145) Potassium Level 4.0 mmol/L (3.5-5.1) Chloride Level 100 mmol/L (98-107) Carbon Dioxide Level 28 mmol/L (21-32) Anion Gap 9 (6-14) Blood Urea Nitrogen 24 mg/dL (7-20) Creatinine 1.3 mg/dL (0.6-1.0) Estimated GFR (Cockcroft-Gault) 41.8 Glucose Level 89 mg/dL (70-99) Calcium Level 9.2 mg/dL (8.5-10.1) Test 06/28/19 11:36 Glucose (Fingerstick) 128 mg/dL (70-99) Medications Active Scripts Medications Dose Route/Sig Max Daily Dose Days Date Category Proair Hfa Inhaler (Albuterol Sulfate) 8.5 Gm Hfa.aer.ad 2 Puff INH PRN Q4HRS PRN 06/26/19 Reported [place] 10-325 Tablet (Acetaminophen/Hydrocodone Bitart) 1 Each Tablet 1 Tab PO PRN Q6HRS PRN 30 06/06/19 Rx Xanax (Alprazolam) 0.5 Mg Tablet 1 Tab PO DAILY PRN 06/06/19 Rx Bupropion Xl (Bupropion Hcl) 150 Mg Tab.er.24h 150 Mg PO DAILY 30 05/16/19 Rx Advair 250-50 Diskus (Fluticasone/Salmeterol) 1 Each Disk.w.dev 1 Puff IH BID 12/09/17 Reported Atorvastatin Calcium 80 Mg Tablet 80 Mg PO HS 12/09/17 Reported Lyrica (Pregabalin) 200 Mg Capsule 1 Cap PO TID 12/09/17 Reported Belsomra (Suvorexant) 20 Mg Tablet 20 Mg PO HS 12/09/17 Reported Cymbalta (Duloxetine Hcl) 60 Mg Capsule.dr 2 Cap PO DAILY 12/09/17 Reported Impression . NOTE DICTATED AGREE WITH CURRENT RX THANKS TESSY FREEMAN MD Jun 28, 2019 14:58
[2019-06-28 15:00] VITALS: BP 120/78
[2019-06-28 19:43] VITALS: BP 116/74
[2019-06-28] MEDS: TEMAZEPAM 15 MG CAPSULE PO SCH (22:22)
--- NOTE | 2019-06-28 23:06 | CONS ---
DATE OF CONSULTATION: 06/28/2019 ATTENDING PHYSICIAN: Josué Duarte DO REASON FOR CONSULTATION: The patient seen in pulmonary consultation at the request of Dr. Duarte for increasing shortness of air. HISTORY OF PRESENT ILLNESS: The patient is a 59-year-old female well known to us from previous hospitalization. She has a history of small cell lung cancer, renal cell carcinoma, normally does not wear oxygen at home. She had increasing shortness of breath, wheeze, coughing up some mucus, no hemoptysis, no fever, chills, night sweats. She was admitted. Chest x-ray was obtained, which revealed chronic right suprahilar density. I was asked to see her in consultation. PAST MEDICAL HISTORY: Remarkable for COPD, type 2 diabetes, hypertension, history of small cell lung cancer diagnosed in 2013. She had renal cell carcinoma status post resection in 2017. Previous history of tobacco use. ALLERGIES: BACTRIM. MEDICATIONS: List was reviewed. SOCIAL HISTORY: She has a [id number] history of tobacco use, quit in 2013. FAMILY HISTORY: No family history of lung disorders. REVIEW OF SYSTEMS: As indicated above, otherwise, a 10-point system was reviewed and negative. CURRENT MEDICATION: List was reviewed. PHYSICAL EXAMINATION: VITAL SIGNS: Stable. O2 saturation was greater than 92%, currently on 2 liters. HEENT: Eyes, sclerae were nonicteric. NECK: Jugular venous distention was not elevated. No lymphadenopathy. CHEST: Full expansion. LUNGS: Expiratory wheeze, crackles throughout both lung huynh. CARDIOVASCULAR: Regular rate and rhythm with S1, S2, no S3. ABDOMEN: Soft, nontender, nondistended. EXTREMITIES: No clubbing, cyanosis. Minimal edema. NEUROLOGIC: The patient was awake, alert, following commands. A detailed neuro exam was not performed. LABORATORY DATA: Arterial blood gas revealed a pH of 7.36, PaCO2 of 40, PaO2 of 77. Serology for influenza was negative. White count was not elevated. Chest x-ray as indicated above. IMPRESSION: 1. Acute exacerbation of chronic obstructive pulmonary disease. 2. Acute hypoxemic respiratory failure. 3. History of small cell lung cancer, status post chemoradiation in 2013. 4. History of renal cell carcinoma, status post nephrectomy in 2016. 5. Type 2 diabetes. 6. Hypertension. 7. Tobacco dependence, in remission. 8. Previously abnormal CT revealing a spiculated suprahilar mass-like opacity concerning for neoplasm with surrounding ground glass opacities. PLAN: 1. We will continue oxygen. 2. Steroids. 3. Antibiotics. 4. The patient was due to follow up with her electronics assembler and tester at [facility] regarding the suprahilar mass-like opacity. I do appreciate the privilege in sharing in the patient's care. TESSY HAY MD DR: ANTOINE/samanta JOB#: [id number] / [id number]
[2019-06-28 23:31] VITALS: BP 132/80
[2019-06-29] MEDS: ATORVASTATIN CALCIUM 40 MG TABLET. PO SCH (00:14)
[2019-06-29 03:40] VITALS: BP 135/105
[2019-06-29] MEDS: HYDROcodone/APAP 10/325 1 TAB TABLET PO PRN ×2 (04:13→10:11)
[2019-06-29 07:00] VITALS: BP 131/81
[2019-06-29] MEDS: BUDESONIDE 0.5 MG/2 ML NEBU. NEB SCH (07:51)
[2019-06-29] MEDS: IPRATRPIUM/ALBUTEROL 0.5/2.5MG 3 ML NEBU. NEB SCH ×3 (07:51→15:42)
[2019-06-29 09:13] LABS: BASO % 0 % (0-3); EOS % 0 % (0-3); HEMATOCRIT 34.4 % (36.0-47.0); HEMOGLOBIN 11.1 g/dL (12.0-15.5); LYMPH # 0.4 x10^3/uL (1.0-4.8); LYMPH % 7 % (24-48); MEAN CORPUSCULAR HEMOGLOBIN 24 pg (25-35); MEAN CORPUSCULAR HGB CONC 32 g/dL (31-37); MEAN CORPUSCULAR VOLUME 74 fL (79-100); MONO # 0.2 x10^3/uL (0.0-1.1); MONO % 4 % (0-9); NEUT # 5.3 x10^3/uL (1.8-7.7); NEUT % 89 % (31-73); PLATELET COUNT 266 x10^3/uL (140-400); RED BLOOD COUNT 4.67 x10^6/uL (3.50-5.40); RED CELL DISTRIBUTION WIDTH 18.4 % (11.5-14.5)
[2019-06-29 09:28] LABS: CREATININE 1.1 mg/dL (0.6-1.0); GFR 50.7; POTASSIUM 4.9 mmol/L (3.5-5.1)
[2019-06-29] MEDS: methylPREDNISolone 4 MG TABLET. PO SCH ×2 (09:35→12:24)
[2019-06-29] MEDS: DULoxetine HCL 30 MG CAPSULE.DR PO SCH (09:35)
[2019-06-29] MEDS: PREGABALIN 50 MG CAPSULE PO SCH ×2 (09:35→14:03)
[2019-06-29] MEDS: buPROPion XL 150 MG TAB.ER.24H. PO SCH (09:35)
[2019-06-29] MEDS: ALPRAZolam 0.5 MG TABLET PO PRN (10:10)
[2019-06-29 11:00] VITALS: BP 127/76
--- NOTE | 2019-06-29 11:52 | PDOC ---
CARDIO Progress Notes Date and Time Date of Service 06/29/18 Time of Evaluation 1140 Subjective Subjective: No Chest Pain, No shortness of breath, No Palpitations Comments: Wanting to go home today Vitals Vitals Vital Signs Date Time Temp Pulse Resp B/P (MAP) Pulse Ox O2 Delivery O2 Flow Rate FiO2 06/29/19 11:19 97 Nasal Cannula 2.0 06/29/19 11:00 98.7 96 16 127/76 (93) 98.7 Weight Weight [ ] Input and Output Intake and Output Intake and Output 06/29/19 07:00 Intake Total 920 ml Balance 920 ml Intake Oral 920 ml # Voids 2 Laboratory Labs Laboratory Tests Test 06/28/19 17:09 06/28/19 20:40 06/29/19 07:47 06/29/19 07:59 Glucose (Fingerstick) 169 mg/dL (70-99) 214 mg/dL (70-99) 126 mg/dL (70-99) White Blood Count 6.0 x10^3/uL (4.0-11.0) Red Blood Count 4.67 x10^6/uL (3.50-5.40) Hemoglobin 11.1 g/dL (12.0-15.5) Hematocrit 34.4 % (36.0-47.0) Mean Corpuscular Volume 74 fL (79-100) Mean Corpuscular Hemoglobin 24 pg (25-35) Mean Corpuscular Hemoglobin Concent 32 g/dL (31-37) Red Cell Distribution Width 18.4 % (11.5-14.5) Platelet Count 266 x10^3/uL (140-400) Neutrophils (%) (Auto) 89 % (31-73) Lymphocytes (%) (Auto) 7 % (24-48) Monocytes (%) (Auto) 4 % (0-9) Eosinophils (%) (Auto) 0 % (0-3) Basophils (%) (Auto) 0 % (0-3) Neutrophils # (Auto) 5.3 x10^3/uL (1.8-7.7) Lymphocytes # (Auto) 0.4 x10^3/uL (1.0-4.8) Monocytes # (Auto) 0.2 x10^3/uL (0.0-1.1) Eosinophils # (Auto) 0.0 x10^3/uL (0.0-0.7) Basophils # (Auto) 0.0 x10^3/uL (0.0-0.2) Sodium Level 136 mmol/L (136-145) Potassium Level 4.9 mmol/L (3.5-5.1) Chloride Level 101 mmol/L (98-107) Carbon Dioxide Level 26 mmol/L (21-32) Anion Gap 9 (6-14) Blood Urea Nitrogen 28 mg/dL (7-20) Creatinine 1.1 mg/dL (0.6-1.0) Estimated GFR (Cockcroft-Gault) 50.7 Glucose Level 120 mg/dL (70-99) Calcium Level 9.0 mg/dL (8.5-10.1) Test 06/29/19 11:04 Glucose (Fingerstick) 147 mg/dL (70-99) Physical Exam HEENT: Neck Supple W Full Motion Chest: Symmetric LUNGS: Other (fien expiratory wheezes ) Heart: S1S2, RRR Abdomen: Soft N/T Extremities: No Edema Neurology: alert, oriented, follow commands Assessment Assessment 1. Acute on chronic respiratory failure with AE COPD and mild CHF. Mostly due to COPD exacerbation 2. Mild acute on chronic diastolic CHF; Recent echo with preserved LV systolic function as above. Appears compensated 3. Hypertension; controlled 4. Hyperlipidemia; statin 5. Diabetes, II. 6. XIAO Recommendations Continue present therapy Consider outpatient ischemic evaluation based upon risk factors. MAy discharge from a CV standpoint and follow up with Dr. Louie upon discharge Supportive care STIVEN BOYCE APRN Jun 29, 2019 11:52
--- NOTE | 2019-06-29 12:24 | PDOC ---
[employer] PROGRESS NOTE Chief Complaint Chief Complaint COPD Exacerbation, resolving Anemia Anxiety Depression Diabetes-Type II High Cholesterol Hypertension Diabetic Neuropathy History of Present Illness History of Present Illness 06/29/19 Pt seen and examined Pt was sitting up in her dayanara DW pt Pt reports feeling much improved Reviewed pt's chart 06/28/19 Pt seen and examined Pt sitting up in bed Pt c/o pain with cough as well as increased sputum production DW RN Reviewed pt's chart Vitals/I&O Vitals/I&O: Vital Signs Date Time Temp Pulse Resp B/P (MAP) Pulse Ox O2 Delivery O2 Flow Rate FiO2 06/29/19 11:19 97 Nasal Cannula 2.0 06/29/19 11:11 18 06/29/19 11:00 98.7 96 127/76 (93) 98.7 I & O 06/28/19 06/28/19 06/29/19 15:00 23:00 07:00 Intake Total 420 ml 450 ml 50 ml Balance 420 ml 450 ml 50 ml Physical Exam General: Alert, Oriented X3, Cooperative, No acute distress Heart: Regular rate, Normal S1, Normal S2 Lungs: Wheezing Abdomen: Soft, No tenderness Extremities: No edema, Normal pulses Skin: No significant lesion Labs Labs: Laboratory Tests Test 06/28/19 17:09 06/28/19 20:40 06/29/19 07:47 06/29/19 07:59 Glucose (Fingerstick) 169 mg/dL (70-99) 214 mg/dL (70-99) 126 mg/dL (70-99) White Blood Count 6.0 x10^3/uL (4.0-11.0) Red Blood Count 4.67 x10^6/uL (3.50-5.40) Hemoglobin 11.1 g/dL (12.0-15.5) Hematocrit 34.4 % (36.0-47.0) Mean Corpuscular Volume 74 fL (79-100) Mean Corpuscular Hemoglobin 24 pg (25-35) Mean Corpuscular Hemoglobin Concent 32 g/dL (31-37) Red Cell Distribution Width 18.4 % (11.5-14.5) Platelet Count 266 x10^3/uL (140-400) Neutrophils (%) (Auto) 89 % (31-73) Lymphocytes (%) (Auto) 7 % (24-48) Monocytes (%) (Auto) 4 % (0-9) Eosinophils (%) (Auto) 0 % (0-3) Basophils (%) (Auto) 0 % (0-3) Neutrophils # (Auto) 5.3 x10^3/uL (1.8-7.7) Lymphocytes # (Auto) 0.4 x10^3/uL (1.0-4.8) Monocytes # (Auto) 0.2 x10^3/uL (0.0-1.1) Eosinophils # (Auto) 0.0 x10^3/uL (0.0-0.7) Basophils # (Auto) 0.0 x10^3/uL (0.0-0.2) Sodium Level 136 mmol/L (136-145) Potassium Level 4.9 mmol/L (3.5-5.1) Chloride Level 101 mmol/L (98-107) Carbon Dioxide Level 26 mmol/L (21-32) Anion Gap 9 (6-14) Blood Urea Nitrogen 28 mg/dL (7-20) Creatinine 1.1 mg/dL (0.6-1.0) Estimated GFR (Cockcroft-Gault) 50.7 Glucose Level 120 mg/dL (70-99) Calcium Level 9.0 mg/dL (8.5-10.1) Test 06/29/19 11:04 Glucose (Fingerstick) 147 mg/dL (70-99) Review of Systems Review of Systems: No c/o headaches No c/o CP Assessment and Plan Assessmemt and Plan Assessment COPD Exacerbation, resolving Anemia Anxiety Depression Diabetes-Type II High Cholesterol Hypertension Diabetic Neuropathy Plan Continue z-pack and medrol dose pack Consult Pulm Breathing treatments Steroids Supplemental O2 DVT Prophylaxis PT/OT Labs Home meds Full code Appreciate subspecialist input Comment Review of Relevant I have reviewed the following items avery (where applicable) has been applied. Medications: Current Medications Medications (Trade) Dose Ordered Sig/Angel Route PRN Reason Start Time Stop Time Status Last Admin Dose Admin Methylprednisolone (Medrol) 4 mg BIDPCLD PO 06/28/19 12:30 06/28/19 17:31 DC 06/28/19 17:25 Methylprednisolone (Medrol) 4 mg TIDPC PO 06/29/19 08:30 06/29/19 17:31 06/29/19 09:35 ANN MARIE HERRON III DO Jun 29, 2019 12:23
[2019-06-29 15:00] VITALS: BP 140/71
--- NOTE | 2019-06-29 16:11 | PDOC ---
PULMONARY PROGRESS NOTES Subjective PT LESS SOA TODAY WANTS TO GO HOME Vitals Vital Signs Date Time Temp Pulse Resp B/P (MAP) Pulse Ox O2 Delivery O2 Flow Rate FiO2 06/29/19 15:45 91 Room Air 06/29/19 15:00 97.7 109 16 140/71 (94) 97.7 06/29/19 11:19 2.0 ROS: No Nausea, No Chest Pain, No Abdominal Pain, No Increase Cough General: Alert, No acute distress Lungs: Clear Cardiovascular: S1, S2 Abdomen: Soft, Non-tender Neuro Exam: Alert Extremities: No Edema Skin: Warm Labs Laboratory Tests Test 06/27/19 16:21 06/27/19 20:36 06/28/19 04:05 06/28/19 07:59 Glucose (Fingerstick) 88 mg/dL (70-99) 132 mg/dL (70-99) 87 mg/dL (70-99) Sodium Level 137 mmol/L (136-145) Potassium Level 4.0 mmol/L (3.5-5.1) Chloride Level 100 mmol/L (98-107) Carbon Dioxide Level 28 mmol/L (21-32) Anion Gap 9 (6-14) Blood Urea Nitrogen 24 mg/dL (7-20) Creatinine 1.3 mg/dL (0.6-1.0) Estimated GFR (Cockcroft-Gault) 41.8 Glucose Level 89 mg/dL (70-99) Calcium Level 9.2 mg/dL (8.5-10.1) Test 06/28/19 11:36 06/28/19 17:09 06/28/19 20:40 06/29/19 07:47 Glucose (Fingerstick) 128 mg/dL (70-99) 169 mg/dL (70-99) 214 mg/dL (70-99) White Blood Count 6.0 x10^3/uL (4.0-11.0) Red Blood Count 4.67 x10^6/uL (3.50-5.40) Hemoglobin 11.1 g/dL (12.0-15.5) Hematocrit 34.4 % (36.0-47.0) Mean Corpuscular Volume 74 fL (79-100) Mean Corpuscular Hemoglobin 24 pg (25-35) Mean Corpuscular Hemoglobin Concent 32 g/dL (31-37) Red Cell Distribution Width 18.4 % (11.5-14.5) Platelet Count 266 x10^3/uL (140-400) Neutrophils (%) (Auto) 89 % (31-73) Lymphocytes (%) (Auto) 7 % (24-48) Monocytes (%) (Auto) 4 % (0-9) Eosinophils (%) (Auto) 0 % (0-3) Basophils (%) (Auto) 0 % (0-3) Neutrophils # (Auto) 5.3 x10^3/uL (1.8-7.7) Lymphocytes # (Auto) 0.4 x10^3/uL (1.0-4.8) Monocytes # (Auto) 0.2 x10^3/uL (0.0-1.1) Eosinophils # (Auto) 0.0 x10^3/uL (0.0-0.7) Basophils # (Auto) 0.0 x10^3/uL (0.0-0.2) Sodium Level 136 mmol/L (136-145) Potassium Level 4.9 mmol/L (3.5-5.1) Chloride Level 101 mmol/L (98-107) Carbon Dioxide Level 26 mmol/L (21-32) Anion Gap 9 (6-14) Blood Urea Nitrogen 28 mg/dL (7-20) Creatinine 1.1 mg/dL (0.6-1.0) Estimated GFR (Cockcroft-Gault) 50.7 Glucose Level 120 mg/dL (70-99) Calcium Level 9.0 mg/dL (8.5-10.1) Test 06/29/19 07:59 06/29/19 11:04 Glucose (Fingerstick) 126 mg/dL (70-99) 147 mg/dL (70-99) Laboratory Tests Test 06/28/19 17:09 06/28/19 20:40 06/29/19 07:47 06/29/19 07:59 Glucose (Fingerstick) 169 mg/dL (70-99) 214 mg/dL (70-99) 126 mg/dL (70-99) White Blood Count 6.0 x10^3/uL (4.0-11.0) Red Blood Count 4.67 x10^6/uL (3.50-5.40) Hemoglobin 11.1 g/dL (12.0-15.5) Hematocrit 34.4 % (36.0-47.0) Mean Corpuscular Volume 74 fL (79-100) Mean Corpuscular Hemoglobin 24 pg (25-35) Mean Corpuscular Hemoglobin Concent 32 g/dL (31-37) Red Cell Distribution Width 18.4 % (11.5-14.5) Platelet Count 266 x10^3/uL (140-400) Neutrophils (%) (Auto) 89 % (31-73) Lymphocytes (%) (Auto) 7 % (24-48) Monocytes (%) (Auto) 4 % (0-9) Eosinophils (%) (Auto) 0 % (0-3) Basophils (%) (Auto) 0 % (0-3) Neutrophils # (Auto) 5.3 x10^3/uL (1.8-7.7) Lymphocytes # (Auto) 0.4 x10^3/uL (1.0-4.8) Monocytes # (Auto) 0.2 x10^3/uL (0.0-1.1) Eosinophils # (Auto) 0.0 x10^3/uL (0.0-0.7) Basophils # (Auto) 0.0 x10^3/uL (0.0-0.2) Sodium Level 136 mmol/L (136-145) Potassium Level 4.9 mmol/L (3.5-5.1) Chloride Level 101 mmol/L (98-107) Carbon Dioxide Level 26 mmol/L (21-32) Anion Gap 9 (6-14) Blood Urea Nitrogen 28 mg/dL (7-20) Creatinine 1.1 mg/dL (0.6-1.0) Estimated GFR (Cockcroft-Gault) 50.7 Glucose Level 120 mg/dL (70-99) Calcium Level 9.0 mg/dL (8.5-10.1) Test 06/29/19 11:04 Glucose (Fingerstick) 147 mg/dL (70-99) Medications Active Scripts Medications Dose Route/Sig Max Daily Dose Days Date Category Proair Hfa Inhaler (Albuterol Sulfate) 8.5 Gm Hfa.aer.ad 2 Puff INH PRN Q4HRS PRN 12/30/19 Reported Malin 10-325 Tablet (Acetaminophen/Hydrocodone Bitart) 1 Each Tablet 1 Tab PO PRN Q6HRS PRN 30 06/06/19 Rx Xanax (Alprazolam) 0.5 Mg Tablet 1 Tab PO DAILY PRN 06/06/19 Rx Bupropion Xl (Bupropion Hcl) 150 Mg Tab.er.24h 150 Mg PO DAILY 30 05/16/19 Rx Advair 250-50 Diskus (Fluticasone/Salmeterol) 1 Each Disk.w.dev 1 Puff IH BID 12/09/17 Reported Atorvastatin Calcium 80 Mg Tablet 80 Mg PO HS 12/09/17 Reported Lyrica (Pregabalin) 200 Mg Capsule 1 Cap PO TID 12/09/17 Reported Belsomra (Suvorexant) 20 Mg Tablet 20 Mg PO HS 12/09/17 Reported Cymbalta (Duloxetine Hcl) 60 Mg Capsule.dr 2 Cap PO DAILY 12/09/17 Reported Impression . IMPRESSION: 1. Acute exacerbation of chronic obstructive pulmonary disease. 2. Acute hypoxemic respiratory failure. 3. History of small cell lung cancer, status post chemoradiation in 2013. 4. History of renal cell carcinoma, status post nephrectomy in 2016. 5. Type 2 diabetes. 6. Hypertension. 7. Tobacco dependence, in remission. 8. Previously abnormal CT revealing a spiculated suprahilar mass-like opacity concerning for neoplasm with surrounding ground glass opacities. Plan . DC OK BY ME FOLLOW UP WITH DOCTORS AT [facility] SHE SEE A TRANSMITTER ENGINEER IN CHARGE 1. We will continue oxygen. 2. Steroids. 3. Antibiotics. 4. The patient was due to follow up with her chronic specialist at [facility] regarding the suprahilar mass-like opacity. TESSY HAY MD Jun 29, 2019 16:11
--- NOTE | 2019-06-29 16:22 | SNU/HH DC ---
DISCHARGE WITH HOME HEALTH DISCHARGE INFORMATION: Condition on Discharge: Stable CODE STATUS: Code Status: Full HOME HEALTH: Face to Face: I certify this patient is under my care and that I, or a nurse practitioner or physician's pet care assistant working with me, had a face to face encounter that meets the physician face to face encounter requirements with this patient on []. Medical Complications: COPD RN For Eval/Treatment: Yes Physical Therapy For: Evalulation/Treatment Speech Language Pathology For: Evaluation/Treatment Home Health Aide For: Self-care AERONAUTICAL ENGINEERING PROFESSOR For: Community Resources Pt Meets Homebound Status: Poor coordination w/ amb. POST DISCHARGE ORDERS: Activity Instructions for Disc: Activity as tolerated Weight Bearing Status after Di: Full weight bearing, As tolerated Bathing Instructions: Shower-keep dressing dry DIET AFTER DISCHARGE: ADA CHECKS AFTER DISCHARGE: Checks after discharge: Check blood press - daily, Check blood sugar, ac/hs TREATMENT/EQUIPMENT ORDERS: Adaptive Equipment Issued: None CERTIFICATION STATEMENT: Certification Statement: Certification Statement: Based on the above finding, I certify that this patient is confined to the home and needs intermittent residential care, physical therapy and/or speech therapy, or continues to need occupational therapy.~ This patient is under my care, and I have initiated the establishment of the plan of care.~ This patient will be followed by myself or a community physician who will periodically review the plan of care. Home Meds Active Scripts Hydrocodone/Apap 10-325 (NORCO 10-325 TABLET) 1 Each Tablet, 1 TAB PO PRN Q6HRS PRN for PAIN for 30 Days, #22 TAB 0 Refills Prov:VAISHALI HERZOG MD 06/06/19 Alprazolam (XANAX) 0.5 Mg Tablet, 1 TAB PO DAILY PRN for ANXIETY, #15 TAB Prov:VAISHALI HERZOG MD 06/06/19 Bupropion Hcl (BUPROPION XL) 150 Mg Tab.er.24h, 150 MG PO DAILY for MOOD for 30 Days, #30 TAB.SR Prov:YOCASTA RILEY MD 05/16/19 Reported Medications Albuterol Sulfate (PROAIR HFA INHALER) 8.5 Gm Hfa.aer.ad, 2 PUFF INH PRN Q4HRS PRN for SHORTNESS OF BREATH, INHALER 0 Refills 06/26/19 Fluticasone/Salmeterol (ADVAIR 250-50 DISKUS) 1 Each Disk.w.dev, 1 PUFF IH BID, #3 INHALER 3 Refills 12/09/17 Atorvastatin Calcium (ATORVASTATIN CALCIUM) 80 Mg Tablet, 80 MG PO HS for FOR CHOLESTEROL, #30 TAB 0 Refills 12/09/17 Pregabalin (LYRICA) 200 Mg Capsule, 1 CAP PO TID, #90 CAP 12/09/17 Suvorexant (Belsomra) 20 Mg Tablet, 20 MG PO HS for insomnia, TAB 12/09/17 Duloxetine Hcl (CYMBALTA) 60 Mg Capsule.dr, 2 CAP PO DAILY, #30 CAP 2 Refills 12/09/17 ANN MARIE HERRON III DO Jun 29, 2019 16:22
--- NOTE | 2019-06-29 17:28 | NUR ---
Received discharge orders. Called for medication orders. Received orders for Medrol Dose Pack and Z-pack take as directed. Called into [facility]. Will be delivered tomorrow.
--- NOTE | 2019-06-29 17:45 | NUR ---
Pt discharged to home with family. Discharge instructions reviewed. Verbalized understanding.
[2019-06-29] MEDS ORDERED: methylPREDNISolone 4 MG TABLET. PO SCH (21:00)
[2019-06-30] MEDS ORDERED: methylPREDNISolone 4 MG TABLET. PO SCH (09:00)
[2019-06-30] MEDS ORDERED: AZITHROMYCIN 250 MG TABLET. PO SCH (09:00)
[2019-07-01] MEDS ORDERED: methylPREDNISolone 4 MG TABLET. PO SCH (09:00)
--- NOTE | 2019-07-01 11:34 | DS ---
DATE OF DISCHARGE: 06/29/2019 ADMISSION DIAGNOSIS: Respiratory failure secondary to chronic obstructive pulmonary disease. DISCHARGE DIAGNOSIS: Resolving respiratory failure. HOSPITAL COURSE: The patient is a pleasant 59-year-old female who used to smoke heavily. She has end-stage COPD. She was admitted. We gave her steroids, breathing treatments, oxygen, antibiotics and we consulted Pulmonary. Over the next 48 hours, she did better. We discharged her to home. DISPOSITION: Home. ACTIVITY: As tolerated. DIET: Low sodium. MEDICATIONS: Please see the MRAD. TOTAL TIME: 31 minutes. ANN MARIE HERRON DO DR: MARCELLO/samanta JOB#: [id number] / [id number]
[2019-07-02] MEDS ORDERED: methylPREDNISolone 4 MG TABLET. PO SCH (09:00)
[2019-07-03] MEDS ORDERED: methylPREDNISolone 4 MG TABLET. PO SCH (09:00)
== END 2019-06-29 17:45 | disposition home or self-care (01) | DRG 189 ==
LOC: ER 20:17 → 6 SOUTH 21:30
PROVIDERS: ADMIT Internal Medicine; ATTEND Internal Medicine
DX: J96.21 Acute and chronic respiratory failure with hypoxia (principal); I50.33 Acute on chronic diastolic (congestive) heart failure; I13.0 Hypertensive heart and chronic kidney disease with heart failure and stage 1 through stage 4 chronic kidney disease, or unspecified chronic kidney disease; N17.9 Acute kidney failure, unspecified; J44.1 Chronic obstructive pulmonary disease with (acute) exacerbation; D64.9 Anemia, unspecified; E11.22 Type 2 diabetes mellitus with diabetic chronic kidney disease; E11.40 Type 2 diabetes mellitus with diabetic neuropathy, unspecified; E78.00 Pure hypercholesterolemia, unspecified; E78.5 Hyperlipidemia, unspecified; F17.201 Nicotine dependence, unspecified, in remission; F32.9 Major depressive disorder, single episode, unspecified; F41.9 Anxiety disorder, unspecified; N18.9 Chronic kidney disease, unspecified; Z82.5 Family history of asthma and other chronic lower respiratory diseases; Z83.3 Family history of diabetes mellitus; Z85.118 Personal history of other malignant neoplasm of bronchus and lung; Z85.528 Personal history of other malignant neoplasm of kidney; Z90.49 Acquired absence of other specified parts of digestive tract; Z90.5 Acquired absence of kidney; Z90.710 Acquired absence of both cervix and uterus; Z92.21 Personal history of antineoplastic chemotherapy; Z92.3 Personal history of irradiation; Z88.8 Allergy status to other drugs, medicaments and biological substances
CPT/HCPCS: 36415; 36600; 71045; 80048; 80053; 82805; 82962; 83880; 84484; 85007; 85025; 86304; 87804; 93005; 94618; 94640; 94760; J1940; J7509; J7620; J7626; Q0144; 97530; 97535; 99285-25; G0378